=== PATIENT | male | born 1945 | race African-American/Black ===

== ENCOUNTER 2016-07-06 14:22 | Inpatient (IN) ==
[2016-07-06] MEDS ORDERED: SODIUM CHLORIDE 0.9% 1,000 ML IV STA ×2 (14:56→14:58)
--- NOTE | 2016-07-06 15:02 | Emergency Department Note ---
Arrival - Arrival Chief Complaint: Non-Specific Stated Complaint: non specific ED Nursing Triage Note: Pt c/o high blood sugar (meter reads high) x 2 days family reports pt has been taking his brother's "pills" after he ran out of his insulin, falling asleep alot, feet has been itching, and SOB/CP with exertion x 2 wks. Blood sugar in triage 324. Mode of Arrival: Wheelchair Limitations: No Limitations Source: Patient, RN Notes Reviewed Time Seen by Provider: 07/06/16 14:48 - History of Present Illness HPI Narrative: Patient is a 71-year-old black male with a long history of diabetes mellitus who has been out of his insulin for a year. The patient has been experiencing polyuria, polydipsia, and weight loss during this time. He occasionally takes his brothers medication which is metformin. Patient denies any nausea or vomiting. He does have occasional anterior chest discomfort which he describes as a tightness. This is not necessarily associated with exertion. The patient has no history of nausea or vomiting. He states that he gets up at least 30 times at night to urinate. He denies any diarrhea Onset (ago): year(s) (1) Consistency: constant Severity: severe Allergies/Adverse Reactions: Allergies Allergy/AdvReac Type Severity Reaction Status Date / Time No Known Allergies Allergy Verified 07/06/16 14:33 Home Medications: Home Medications Medication Instructions Recorded Confirmed Type No Known Home Medications [No 07/06/16 07/06/16 History Known Home Medications] Review of System - Review of System 12 point system: reviewed and no additional remarkable complaints except as stated - Review of System Constitutional: Absent: chills, fever Respiratory: Absent: cough Cardiovascular: Present: chest pain Gastrointestinal: Absent: nausea, vomiting Medical,Surgical,& Family Hx - Medical History Endocrine: History of: Diabetes Mellitus (IDDM) - Social History Smoking Status: Never smoker Marital Status: Lives With:: Spouse Functional capacity: independent ambulation Exam Vital Signs: Vital Signs Temperature 98.2 F 07/06/16 14:26 Pulse Rate 83 07/06/16 15:54 Respiratory Rate 18 07/06/16 15:54 Blood Pressure 146/70 07/06/16 15:54 O2 Sat by Pulse Oximetry 97 07/06/16 14:26 GENERAL: This is a well-nourished well-developed black male in no apparent distress. VITAL SIGNS: Reviewed HEENT: Head is atraumatic and normocephalic. Pupils are equal round react to light. Extraocular movements are intact. Oropharynx is benign with dry mucous membranes. NECK: Neck is soft and supple without tenderness. There are no masses. There is no lymphadenopathy. LUNGS: Lungs are clear to auscultation. Chest rises symmetrically. There is no chest wall tenderness. CV: Heart is rapid rate without murmurs rubs or gallops. ABDOMEN: Abdomen is soft, nontender to palpation. There are no abdominal abnormal masses palpated. There is no organomegaly. Bowel sounds are present and active. SKIN: Skin is warm and dry. No rash. Poor turgor EXTREMITIES: Patient has full range of motion without tenderness. There is no pedal edema. NEUROLOGIC: Awake alert and oriented 4. Cranial nerves II through XII are grossly intact. Motor is 5 over 5 in all extremities bilaterally. Course - Consultations Consultation #1: Discussed with hospitalist. Patient will be admitted to their service. Time: 16:27 Results - Labs CBC & BMP: 07/06/16 15:14 07/06/16 15:14 Lab Results: I have reviewed the patients labs Labs: Laboratory Tests 07/06/16 15:14 Prealbumin 20.5 - EKG EKG results: interpreted by ERMD - Impressions EKG: Normal sinus rhythm with a rate of 80, occasional supraventricular premature complexes, early repolarization, left axis deviation. - Diagnostic Findings Procedure: Chest x-ray: image reviewed by me (No infiltrates, no pleural effusions, mild cardiomegaly.) Disposition Clinical Impression: Diabetes mellitus type 1, uncontrolled, Anemia, Chest pain, Renal failure, Severe dehydration Case discussed with: patient, patient's family Disposition: Still a Patient Condition: Guarded Time of Disposition: 16:27
--- NOTE | 2016-07-06 15:19 | EKG Report ---
Stationary ECG Study [facility] ER Test Date: 07/06/2016 2:52:38 PM Pat Name: JEAN MARTINEZ Department: Room: Gender: M Medical Tech: JEAN Tsai : 1945 Requested by: Bk Eckert Order Number: [id number] Reading MD: RASHEL SALINAS Intervals [place] Rate: 80 P: 82 TX: 181 QRS: -22 QRSD: 89 T: 84 QT: 355 QTc: 391 Interpretive Statements SINUS RHYTHM WITH OCCASIONAL SUPRAVENTRICULAR PREMATURE COMPLEXES LEFT AXIS DEVIATION ST ELEVATION, PROBABLY EARLY REPOLARIZATION Electronically Signed On 07-06-16 19:09:30 CDT by RASHEL SALINAS [email or web address]
[2016-07-06 15:35] LABS: Basophils % 0.3 % (0.0-0.8); Eosinophils # 0.1 10*3/uL (0.0-0.87); Eosinophils % 1.3 % (0.00-10.9); Hematocrit 30.1 VOL% (42.0-52.0); Hemoglobin 10.4 GM/DL (14.0-18.0); Lymphocytes # 1.3 10*3/uL (1.4-4.0); Lymphocytes % 33.1 % (21.2-54.2); Mean Corpuscular HGB Conc 34.6 GM/DL (32-36); Mean Corpuscular Hemoglobin 31 PG (27-34); Mean Corpuscular Volume 88.3 FL (87-102); Mean Platelet Volume 12.2 FL (9.6-12.0); Monocytes # 0.3 10*3/uL (0.11-0.8); Monocytes % 8.1 % (1.7-12.7); Neutrophils # 2.3 10*3/uL (1.4-7.4); Neutrophils % 57.2 % (38.7-73.9); Platelet Count 132 T/CUMM (130-400); Red Blood Count 3.41 MC/CUMM (3.8-5.5); Red Cell Distribution Width 12.8 % (9.3-17.3)
[2016-07-06 15:59] LABS: Albumin 3.2 G/DL (3.4-5.0); Bilirubin,Total 0.7 MG/DL (0.2-1.0); Calcium 9.2 MG/DL (8.5-10.1); Osmolality,Calculated 309.5 MOS/KG (273-304); Potassium 4.8 MMOL/L (3.5-5.1)
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
[2016-07-06 16:11] LABS: ABG Base Excess 1.4 MMOL/L (-2.5-2.5); ABG Oxygen Saturation 96.3 % (95-100); ABG PCO2 47.2 MM HG (35-48); ABG PH 7.376 (7.35-7.45); ABG PO2 90.9 MM HG (80-95); ABG TCO2 28.5 MMOL/L (23-27)
[2016-07-06 16:21] LABS: Ferritin 264.4 ng/ml (26-388)
[2016-07-06] MEDS ORDERED: INSULIN LISPRO 100 UNIT/ML SUBCUT STA (16:27)
[2016-07-06 16:29] LABS: Folate 22.6 NG/ML (5.4-24.0)
[2016-07-06] MEDS ORDERED: INSULIN LISPRO 100 UNIT/ML SUBCUT ONE (17:05)
--- NOTE | 2016-07-06 17:18 | Hospitalist Progress Note ---
Assessment and Plan (1) Diabetes mellitus type 1, uncontrolled Status: Acute Assessment and plan: We will start accuchecks with sliding scale coverage, obtain HGA1C, and refer to diabetes education. Current Visit: Yes (2) Severe dehydration Status: Acute Assessment and plan: We will rehydrate and replace volume. Current Visit: Yes Hospitalist: Subjective Interval history: This Exam - Constitutional Vitals: Period Temp Pulse Resp BP Sys/Esposito Pulse Ox Last 24 Hr 98.2 F 83-83 18-18 146-146/70-70 97 General appearance: no acute distress, under weight - Head Head exam: Present: normal inspection, normocephalic - Eye Eye exam: Present: EOMI Pupils: Present: CIRILO, normal accommodation - ENT ENT exam: Present: normal exam - Neck Neck exam: Present: normal inspection. Absent: lymphadenopathy, meningismus, tenderness, thyromegaly - Respiratory Respiratory exam: Present: clear to auscultation bilaterally. Absent: accessory muscle use, rales, rhonchi, stridor, wheezes - Cardiovascular Cardiovascular exam: Present: regular rate and rhythm. Absent: carotid bruit, diastolic murmur, gallop, JVD, rubs, systolic murmur - GI/Abdominal GI/Abdominal exam: Present: normal bowel sounds, soft. Absent: distended, firm , mass, tenderness - Extremities Exam Extremities exam: Present: normal inspection, full ROM. Absent: edema - Back Exam Back exam: Present: normal inspection - Neurological Exam Neurological exam: Present: alert, oriented X3, CN II-XII intact - Psychiatric Psychiatric exam: Present: normal affect, normal mood - Skin Skin exam: Present: normal color, warm, dry Results - Labs CBC & BMP: 07/06/16 15:14 07/06/16 15:14 Lab Results: I have reviewed the past 24 hour labs Quality Measures - VTE Deep Vein Thrombosis/Pulmonary Embolism Present on Admission: No
--- NOTE | 2016-07-06 17:26 | Hospitalist History & Physical ---
<Skye Caicedo - Last Filed: 07/06/16 17:31> Assessment and Plan (1) Diabetes mellitus type 1, uncontrolled Status: Acute Assessment and plan: We will start accuchecks with sliding scale coverage. We will obtain HGA1C and repeat labs in AM. Current Visit: Yes (2) Severe dehydration Status: Acute Assessment and plan: We will rehydrate and replace volume. Current Visit: Yes History of Present Illness Chief complaint: "high blood sugar" History of present illness: This is a 71 year-old male that presented to the ED today with his with a chief complaint of 'high blood sugars". The patient has a been previously diagnosed with diabetes; however he does not take any medications. He reports that he was prescribed Lantus but, he never took it because of the costs. He reports that he was then prescribed Novolin, but he refused to take it. He states "everyone that I knew that took novolin has their legs cut off". He reports that he has a brother of whom is also diabetic. His brother takes Metformin. He reports that convinced his brother to give him some of his Metformin. He states that "I take it when I feel like my blood sugar is up". His is at bedside. She reports that he doesn't have a current PCP and hasn' t seen a doctor in "several years". In recent months, he reports weight loss; states "I know that I have lost 30 to 40 pounds or more". In addition, he reports frequent urination at night; states "I get up and pee 30-40 times a night". At the time of ED presentation, his blood glucose levels were noted above 400. He will be admitted to the hospitalist service for hyperglycemia and and started taking when he feel Home Medications Medication Instructions Recorded Confirmed Type No Known Home Medications [No 07/06/16 07/06/16 History Known Home Medications] Allergies Allergy/AdvReac Type Severity Reaction Status Date / Time No Known Allergies Allergy Verified 07/06/16 14:33 Medical,Surgical,& Family Hx - Medical History Endocrine: History of: Diabetes Mellitus (IDDM) - Social History Smoking Status: Never smoker - Constitutional Constitutional: Present: increased appetite, weight gain. Absent: excessive sweating, malaise, night sweats, stops breathing during sleep, weight loss - EENT Eyes: Present: blurry vision. Absent: diplopia, loss of vision Ears: Absent: as per HPI Nose, mouth and throat: Absent: as per HPI Exam - Constitutional Vitals: Period Temp Pulse Resp BP Sys/Esposito Pulse Ox Last 24 Hr 98.2 F 83-83 18-18 146-146/70-70 97 General appearance: normal weight, no acute distress - Head Head exam: Present: normal inspection, normocephalic - Eye Eye exam: Present: EOMI Pupils: Present: CIRILO - ENT ENT exam: Present: normal exam - Neck Neck exam: Present: normal inspection. Absent: lymphadenopathy, meningismus, tenderness, thyromegaly - Respiratory Respiratory exam: Present: clear to auscultation bilaterally. Absent: rales, rhonchi, stridor - Cardiovascular Cardiovascular exam: Present: regular rate and rhythm, tachycardia. Absent: carotid bruit, diastolic murmur, gallop, JVD, rubs, systolic murmur - GI/Abdominal GI/Abdominal exam: Present: normal bowel sounds, soft. Absent: guarding, mass - Extremities Exam Extremities exam: Present: normal inspection, full ROM - Back Exam Back exam: Present: normal inspection - Neurological Exam Neurological exam: Present: alert, oriented X3, CN II-XII intact - Psychiatric Psychiatric exam: Present: normal affect, normal mood - Skin Skin exam: Present: normal color, warm, dry Results - Labs CBC & BMP: 07/06/16 15:14 07/06/16 15:14 Lab Results: I have reviewed the past 24 hour labs Quality Measures - VTE Deep Vein Thrombosis/Pulmonary Embolism Present on Admission: No <Moy Renee - Last Filed: 07/06/16 18:20> History of Present Illness History of present illness: Mr. Headley is a 71 year old male Results - Labs CBC & BMP: 07/06/16 15:14 07/06/16 15:14
[2016-07-06] MEDS ORDERED: DOCUSATE SODIUM 100 MG CAPSULE PO PRN (18:05)
[2016-07-06] MEDS ORDERED: ACETAMINOPHEN 325 MG TABLET PO PRN (18:05)
[2016-07-06] MEDS ORDERED: DEXTROSE 50% 25 GM/50 ML VIAL IV PRN ×2 (18:05)
[2016-07-06] MEDS ORDERED: GLUCAGON 1 MG VIAL IM PRN ×2 (18:05)
[2016-07-06] MEDS ORDERED: hydrALAZINE 20 MG/1 ML VIAL IV PRN (18:05)
[2016-07-06] MEDS ORDERED: ONDANSETRON 4 MG/2 ML VIAL IV PRN (18:05)
[2016-07-06] MEDS: ASPIRIN 325 MG TABLET PO SCH (18:50)
[2016-07-06] MEDS: NITROGLYCERIN 2% OINT 1 INCH/GM PACK TOP SCH (18:50)
[2016-07-06] MEDS: SODIUM CHLORIDE 0.9% 1,000 ML IV SCH (18:51)
[2016-07-06] MEDS: ENOXAPARIN 40 MG/0.4 ML SYRINGE SUBCUT SCH (22:03)
[2016-07-06] MEDS: INSULIN GLARGINE 100 UNIT/ML SUBCUT SCH (22:56)
[2016-07-07] MEDS: NITROGLYCERIN 2% OINT 1 INCH/GM PACK TOP SCH ×4 (01:11→18:44)
[2016-07-07] MEDS: SODIUM CHLORIDE 0.9% 1,000 ML IV SCH ×4 (03:42→18:44)
[2016-07-07 06:39] LABS: Basophils % 0.3 % (0.0-0.8); Eosinophils # 0.1 10*3/uL (0.0-0.87); Eosinophils % 1.8 % (0.00-10.9); Hematocrit 32.4 VOL% (42.0-52.0); Hemoglobin 10.6 GM/DL (14.0-18.0); Immature Granulocytes % 0.3 %; Immature Granulocytes Absolute 0.01 #; Lymphocytes # 1.7 10*3/uL (1.4-4.0); Lymphocytes % 48.7 % (21.2-54.2); Mean Corpuscular HGB Conc 32.7 GM/DL (32-36); Mean Corpuscular Hemoglobin 30 PG (27-34); Mean Corpuscular Volume 91.3 FL (87-102); Mean Platelet Volume 11.7 FL (9.6-12.0); Monocytes # 0.3 10*3/uL (0.11-0.8); Monocytes % 7.3 % (1.7-12.7); Neutrophils # 1.4 10*3/uL (1.4-7.4); Neutrophils % 41.6 % (38.7-73.9); Platelet Count 128 T/CUMM (130-400); Red Blood Count 3.55 MC/CUMM (3.8-5.5); Red Cell Distribution Width 12.7 % (9.3-17.3); White Blood Count 3.4 T/CUMM (4-12)
[2016-07-07 07:19] LABS: Albumin 2.6 G/DL (3.4-5.0); Bilirubin,Total 0.9 MG/DL (0.2-1.0); Calcium 8.5 MG/DL (8.5-10.1); Osmolality,Calculated 305.1 MOS/KG (273-304); Potassium 4.4 MMOL/L (3.5-5.1); Risk Ratio 3.56; Thyroid Stimulating Hormone 1.29 uIU/ml (0.358-3.74); Total Protein 5.4 G/DL (6.4-8.3); VLDL CHOLESTEROL 16.6 MG/DL
[2016-07-07] MEDS: PANTOPRAZOLE 40 MG TABLET PO SCH (08:08)
[2016-07-07] MEDS: ASPIRIN 325 MG TABLET PO SCH (08:08)
--- NOTE | 2016-07-07 13:01 | Hospitalist Progress Note ---
Assessment and Plan - Time spent with patient Time spent with patient: Greater than 30 minutes (1) Diabetes mellitus type 1, uncontrolled Status: Acute Assessment and plan: We will add lispro 5 units to meals twice daily. Will ask social work to evaluate cost of insulin at discharge tomorrow. Current Visit: Yes Hospitalist: Subjective Interval history: Admitted overnight with uncontrolled hyperglycemia. Currently no complaints. Exam - Constitutional Vitals: Period Temp Pulse Resp BP Sys/Esposito Pulse Ox Last 24 Hr 97.7 F-98.7 F 71-80 16-18 137-164/68-98 96-100 General appearance: no acute distress - Head Head exam: Present: normocephalic, atraumatic - Eye Eye exam: Present: EOMI Pupils: Present: CIRILO - ENT ENT exam: Present: normal exam - Neck Neck exam: Present: normal inspection - Respiratory Respiratory exam: Present: clear to auscultation bilaterally. Absent: rhonchi, wheezes - Cardiovascular Cardiovascular exam: Present: regular rate and rhythm. Absent: gallop, rubs, systolic murmur - GI/Abdominal GI/Abdominal exam: Present: normal bowel sounds, soft. Absent: distended, firm , guarding, tenderness, rebound - Extremities Exam Extremities exam: Present: normal inspection. Absent: calf tenderness, edema Results - Labs CBC & BMP: 07/07/16 06:19 07/07/16 06:19 Lab Results: I have reviewed the past 24 hour labs Quality Measures - VTE Deep Vein Thrombosis/Pulmonary Embolism Present on Admission: No
[2016-07-07] MEDS: INSULIN LISPRO 100 UNIT/ML SUBCUT SCH (18:43)
[2016-07-07] MEDS: ENOXAPARIN 40 MG/0.4 ML SYRINGE SUBCUT SCH (21:52)
[2016-07-07] MEDS: INSULIN GLARGINE 100 UNIT/ML SUBCUT SCH (21:52)
[2016-07-08] MEDS: NITROGLYCERIN 2% OINT 1 INCH/GM PACK TOP SCH ×3 (02:01→11:13)
[2016-07-08] MEDS: SODIUM CHLORIDE 0.9% 1,000 ML IV SCH ×2 (02:23→12:50)
[2016-07-08 06:40] LABS: Eosinophils # 0.1 10*3/uL (0.0-0.87); Eosinophils % 1.9 % (0.00-10.9); Hematocrit 30.8 VOL% (42.0-52.0); Lymphocytes # 1.6 10*3/uL (1.4-4.0); Lymphocytes % 51.4 % (21.2-54.2); Mean Corpuscular HGB Conc 32.5 GM/DL (32-36); Mean Corpuscular Hemoglobin 30 PG (27-34); Mean Corpuscular Volume 91.4 FL (87-102); Mean Platelet Volume 11.4 FL (9.6-12.0); Monocytes # 0.2 10*3/uL (0.11-0.8); Monocytes % 6.8 % (1.7-12.7); Neutrophils # 1.2 10*3/uL (1.4-7.4); Neutrophils % 39.9 % (38.7-73.9); Platelet Count 124 T/CUMM (130-400); Red Blood Count 3.37 MC/CUMM (3.8-5.5); Red Cell Distribution Width 12.8 % (9.3-17.3); White Blood Count 3.1 T/CUMM (4-12)
[2016-07-08 07:06] LABS: Calcium 8.2 MG/DL (8.5-10.1); Osmolality,Calculated 297.4 MOS/KG (273-304)
[2016-07-08 07:09] LABS: Hypochromasia Slight; Platelet Estimate Adequate
[2016-07-08] MEDS: INSULIN LISPRO 100 UNIT/ML SUBCUT SCH ×2 (07:41→16:06)
[2016-07-08] MEDS: PANTOPRAZOLE 40 MG TABLET PO SCH (08:37)
[2016-07-08] MEDS: ASPIRIN 325 MG TABLET PO SCH (08:37)
--- NOTE | 2016-07-08 12:18 | Discharge Summary ---
Hospital Course - Hospital Course Hospital Course: Mr. Branch presented with dehydration elevated glucose levels. Hemoglobin A1c was noted to be 15.5. Patient had not been taking any home insulin and had in fact been taking his brothers metformin prior to admission. He was initiated on Lantus and Lispro. Social work confirmed that it was affordable to the patient. He was seen by yoke presser. By discharge he had met maximum benefit of hospitalization. - Time spent with patient Time with patient DS: Greater than 30 minutes Diagnosis - Discharge Diagnosis (1) Diabetes mellitus type 1, uncontrolled Status: Acute Specialty Discharge - Follow Up or Referrals Discharge Plan - Discharge Data Disposition: Disch To Home/Self Care Condition at Discharge: Stable Discharge Diet: advance to your usual diet Activity: resume usual activities as tolerated - Discharge Medications New Aspirin EC Tab 81 mg PO DAILY #30 tablet Insulin Glargine [Lantus] 10 unit SUBCUT BEDTIME #1 unit Insulin Lispro [HumaLOG] 5 unit SUBCUT TID W/MEALS #1 unit - Follow Up or Referral - Forms/Instructions Instructions: Chest Pain (DC), Chronic Kidney Disease (DC), Diabetes Mellitus Type 2 in Adults (DC), Anemia (DC) Exam - Constitutional Vitals: Period Temp Pulse Resp BP Sys/Esposito Pulse Ox Last 24 Hr 97.7 F-98.4 F 67-76 16-18 140-157/78-95 96-100 General appearance: normal weight, no acute distress - Head Head exam: Present: normal inspection, normocephalic, atraumatic - Eye Eye exam: Present: EOMI Pupils: Present: CIRILO - ENT ENT exam: Present: normal exam - Neck Neck exam: Present: normal inspection - Respiratory Respiratory exam: Present: clear to auscultation bilaterally - Cardiovascular Cardiovascular exam: Present: regular rate and rhythm - GI/Abdominal GI/Abdominal exam: Present: normal bowel sounds - Extremities Exam Extremities exam: Present: normal inspection Discharge Results Labs on day of discharge: Labs from last 24 hours 07/08/16 07/08/16 07/08/16 11:32 07:36 06:23 WBC RBC Hgb Hct MCV MCH MCHC RDW Plt Count MPV Neut % (Auto) Lymph % (Auto) [place] % (Auto) Eos % (Auto) Baso % (Auto) Neut # (Auto) Lymph # (Auto) [place] # (Auto) Eos # (Auto) Baso # (Auto) Immature Gran % Nucleated RBC % Immature Gran # Nucleated RBCs # Platelet Estimate Hypochromasia Sodium 147 H Potassium 4.0 Chloride 114 H Carbon Dioxide 27 Anion Gap 10.0 BUN 23 H Creatinine 1.50 H GFR Calculation 61 BUN/Creatinine Ratio 15.00 Glucose 135 H POC Glucose 85 105 Calculated Osmolality 297.4 Calcium 8.2 L 07/08/16 07/07/16 07/07/16 06:23 20:09 16:40 WBC 3.1 L RBC 3.37 L Hgb 10.0 L Hct 30.8 L MCV 91.4 MCH 30 MCHC 32.5 RDW 12.8 Plt Count 124 L MPV 11.4 Neut % (Auto) 39.9 Lymph % (Auto) 51.4 [place] % (Auto) 6.8 Eos % (Auto) 1.9 Baso % (Auto) 0.0 Neut # (Auto) 1.2 L Lymph # (Auto) 1.6 [place] # (Auto) 0.2 Eos # (Auto) 0.1 Baso # (Auto) 0.0 Immature Gran % 0.0 Nucleated RBC % 0.0 Immature Gran # 0.00 Nucleated RBCs # 0.00 Platelet Estimate Adequate Hypochromasia Slight Sodium Potassium Chloride Carbon Dioxide Anion Gap BUN Creatinine GFR Calculation BUN/Creatinine Ratio Glucose POC Glucose 346 H 378 H Calculated Osmolality Calcium 07/07/16 12:12 WBC RBC Hgb Hct MCV MCH MCHC RDW Plt Count MPV Neut % (Auto) Lymph % (Auto) [place] % (Auto) Eos % (Auto) Baso % (Auto) Neut # (Auto) Lymph # (Auto) [place] # (Auto) Eos # (Auto) Baso # (Auto) Immature Gran % Nucleated RBC % Immature Gran # Nucleated RBCs # Platelet Estimate Hypochromasia Sodium Potassium Chloride Carbon Dioxide Anion Gap BUN Creatinine GFR Calculation BUN/Creatinine Ratio Glucose POC Glucose 300 H Calculated Osmolality Calcium DS: Provider Date of admission: 07/06/16 17:19 Primary care physician: . No PCP Attending physician on admission: Magnolia Maloney MD Consults: 07/06/16 18:05 Consult to Diabetes Center, Educator [CONS] Routine Reason for Organ Pipe Maker Metal: Diabetes Education 07/06/16 18:09 Consult to Pharmacy [CONS] Routine Reason for Pharmacy Consult: Adjust Meds Renal Funct 07/06/16 18:46 Consult to Dietitian [CONS] Routine Reason for Dietitian: Diet Instruction 07/06/16 18:49 Consult to Diabetes Center, Educator [CONS] Routine Reason for Organ Pipe Maker Metal: Diabetes Education 07/07/16 13:01 Consult to Case Mgmt/Social Srvs [CONS] Routine Reason for Case Mgmt/Social Srvs: Discharge Planning 07/08/16 08:00 Consult to Case Mgmt/Social Srvs [CONS] Routine Reason for Case Mgmt/Social Srvs: Other Consult Comment: evaluate cost of Insulin for pt (not sure of dose yet) 07/08/16 11:40 Consult to Diabetes Center, Educator [CONS] Routine Reason for Organ Pipe Maker Metal: Diabetes Education Initial Insulin Education Discharging clinician: Magnolia Maloney MD Expected date of discharge: 07/08/16
[2016-07-08 12:46] VITALS: BP 147/74
--- NOTE | 2016-07-08 13:14 | Physician Query Form ---
CLICK EDIT DOCUMENT TO SELECT QUERY ANSWER --> OK --> SIGN Ngoc Berman RN Clinical Folder Machine Operator W) [phone] (f) [phone] [email or web address]: Make your selection(s) from the choices in EACH section by typing an "x" and enter comments in the comment section. Please use your independent medical judgment in providing your response. This request does not imply that any particular answer is desired or expected. CLINICAL INDICATORS: (Providers should not edit this section) Based on documentation of "renal failure", creatinine on admission of 2.10 with a GFR of 41 and decreased to 1.50. Pt. treated with IV fluids. Please clarify the acuity of the renal failure. Clarify which of the following most accurately represents the patient's renal status: ( ) Acute kidney injury (non-traumatic) ( ) Acute renal failure (x ) Acute renal failure with underlying Chronic Kidney Disease (CKD) - please provide stage below ( ) CKD - please provide stage below ( ) Other, please specify: ( ) Clinically unable to determine Chronic Kidney Disease Stages Source: National Kid[employer] Foundation ( ) Stage I (eGFR > or = 90) ( ) Stage II (eGFR 60 - 89) (x ) Stage III (eGFR 30 - 59) ( ) Stage IV (eGFR 15 - 29) ( ) Stage V (eGFR < 15 or dialysis) COMMENTS: Use of terms such as suspected, likely, or probable (associated with a specific diagnosis that is being evaluated, monitored, or treated as if it exists) are acceptable and can be restated in the discharge summary if not ruled out. MTDD
== END 2016-07-08 16:53 | disposition home or self-care (01) | DRG 638 ==
LOC: N.ED 14:22 → N.EDINP 17:19 → N.5E 17:40
PROVIDERS: ADMIT Internal Medicine; ATTEND Internal Medicine

== ENCOUNTER 2017-12-06 11:02 | Observation (INO) ==
[2017-12-06] MEDS ORDERED: LACTATED RINGERS 1,000 ML IV ONE (13:34)
[2017-12-06] MEDS ORDERED: CLOTRIMAZOLE 1% CREAM 15 GM TUBE TOP STA (13:35)
[2017-12-06 14:07] LABS: Eosinophils # 0.1 10*3/uL (0.0-0.87); Eosinophils % 1.9 % (0.00-10.9); Hematocrit 27.7 VOL% (42.0-52.0); Hemoglobin 9.3 GM/DL (14.0-18.0); Immature Granulocytes % 0.3 %; Immature Granulocytes Absolute 0.01 #; Lymphocytes # 1.2 10*3/uL (1.4-4.0); Lymphocytes % 37.7 % (21.2-54.2); Mean Corpuscular HGB Conc 33.6 GM/DL (32-36); Mean Corpuscular Hemoglobin 31 PG (27-34); Mean Corpuscular Volume 91.1 FL (87-102); Mean Platelet Volume 11.6 FL (9.6-12.0); Monocytes # 0.3 10*3/uL (0.11-0.8); Monocytes % 8.4 % (1.7-12.7); Neutrophils # 1.7 10*3/uL (1.4-7.4); Neutrophils % 51.7 % (38.7-73.9); Platelet Count 145 T/CUMM (130-400); Red Blood Count 3.04 MC/CUMM (3.8-5.5); Red Cell Distribution Width 12.8 % (9.3-17.3); White Blood Count 3.2 T/CUMM (4-12)
[2017-12-06 14:17] LABS: INR 0.9
[2017-12-06 14:20] LABS: Apearance,Urine CLEAR (Clear); Bilirubin,Urine Negative (Negative); Blood, Urine Small mg/dL (Negative); Glucose,Urine (UA) >=500 mg/dL (Negative); Ketones,Urine Negative (Negative); Mucus,Urine Occasional /LPF (Occasional); Nitrite,Urine Negative (Negative); Protein,Urine 100 MG/DL; RBC,Urine 1 /HPF (0-4); Squamous Epithelial Cell,Urine Occasional /HPF (0-10); Urine Color Straw (Yellow); Urine Specific Gravity 1.016 (1.001-1.035); Urine Urobilinogen < 2.0 EU/DL (0.2-1.0); WBC,Urine 1 /HPF (0-6)
[2017-12-06 14:31] LABS: Albumin 2.4 G/DL (3.4-5.0); Bilirubin,Total 0.7 MG/DL (0.2-1.0); Calcium 8.3 MG/DL (8.5-10.1); Osmolality,Calculated 308.8 MOS/KG (273-304); Potassium 4.2 MMOL/L (3.5-5.1); Total Protein 6.4 G/DL (6.4-8.3)
[2017-12-06] MEDS ORDERED: INSULIN REGULAR 100 UNIT/ML IV STA (14:55)
[2017-12-06] MEDS ORDERED: PROMETHAZINE 25 MG/1 ML VIAL IM PRN (15:02)
[2017-12-06] MEDS ORDERED: DEXTROSE 50% 25 GM/50 ML VIAL IV PRN (15:02)
[2017-12-06] MEDS ORDERED: GLUCAGON 1 MG VIAL IM PRN (15:02)
[2017-12-06] MEDS ORDERED: ONDANSETRON 4 MG/2 ML VIAL IV PRN (15:02)
[2017-12-06] MEDS ORDERED: hydrALAZINE 20 MG/1 ML VIAL IV STA (15:06)
[2017-12-06] MEDS ORDERED: SODIUM CHLORIDE 0.9% 1,000 ML IV STA (15:11)
[2017-12-06] MEDS ORDERED: amLODIPine 5 MG TABLET PO STA (15:19)
[2017-12-06] MEDS ORDERED: POTASSIUM CHLORIDE RIDER 10 MEQ in PREMIX 1 EACH IV PRN (15:41)
[2017-12-06] MEDS: FLUCONAZOLE 200 MG TABLET PO SCH (16:15)
[2017-12-06] MEDS ORDERED: INSULIN REGULAR 100 UNIT/ML IV ONE (17:26)
[2017-12-06] MEDS: SODIUM CHLORIDE 0.9% 1,000 ML IV SCH (17:56)
[2017-12-06] MEDS: INSULIN REGULAR 100 UNIT/ML SUBCUT SCH ×3 (18:23→22:03)
[2017-12-06] MEDS ORDERED: INSULIN GLARGINE 100 UNIT/ML SUBCUT SCH ×2 (21:00)
[2017-12-06] MEDS: ENOXAPARIN 30 MG/0.3 ML SYRINGE SUBCUT SCH (22:04)
[2017-12-07] MEDS ORDERED: INSULIN REGULAR 100 UNIT/ML IV ONE (01:00)
[2017-12-07] MEDS ORDERED: INSULIN GLARGINE 100 UNIT/ML SUBCUT ONE (01:00)
[2017-12-07] MEDS ORDERED: INSULIN REGULAR 100 UNIT/ML SUBCUT ONE (01:09)
[2017-12-07] MEDS: INSULIN REGULAR 100 UNIT/ML SUBCUT SCH ×10 (02:05→21:23)
[2017-12-07 04:19] LABS: Basophils % 0.2 % (0.0-0.8); Eosinophils % 0.9 % (0.00-10.9); Hemoglobin 9.5 GM/DL (14.0-18.0); Immature Granulocytes % 0.2 %; Immature Granulocytes Absolute 0.01 #; Lymphocytes # 1.2 10*3/uL (1.4-4.0); Lymphocytes % 26.6 % (21.2-54.2); Mean Corpuscular HGB Conc 33.9 GM/DL (32-36); Mean Corpuscular Hemoglobin 31 PG (27-34); Mean Corpuscular Volume 90.3 FL (87-102); Mean Platelet Volume 12.1 FL (9.6-12.0); Monocytes # 0.3 10*3/uL (0.11-0.8); Monocytes % 6.4 % (1.7-12.7); Neutrophils # 3.1 10*3/uL (1.4-7.4); Neutrophils % 65.7 % (38.7-73.9); Platelet Count 145 T/CUMM (130-400); Red Cell Distribution Width 12.8 % (9.3-17.3); White Blood Count 4.7 T/CUMM (4-12)
[2017-12-07 04:43] LABS: Calcium 8.2 MG/DL (8.5-10.1); Osmolality,Calculated 304.8 MOS/KG (273-304); Potassium 3.6 MMOL/L (3.5-5.1)
[2017-12-07 05:31] LABS: Risk Ratio 3.6; Thyroid Stimulating Hormone 1.86 uIU/ml (0.358-3.74); VLDL CHOLESTEROL 25.4 MG/DL
[2017-12-07] MEDS: SODIUM CHLORIDE 0.9% 1,000 ML IV SCH ×3 (06:01→22:37)
[2017-12-07] MEDS: PANTOPRAZOLE 40 MG TABLET PO SCH (08:52)
[2017-12-07] MEDS: ASPIRIN EC 81 MG TABLET PO SCH (08:52)
[2017-12-07] MEDS: FLUCONAZOLE 200 MG TABLET PO SCH (08:52)
[2017-12-07] MEDS: POTASSIUM CHLORIDE 20 MEQ TABLET PO PRN ×2 (08:53→10:32)
[2017-12-07] MEDS ORDERED: INSULIN GLARGINE 100 UNIT/ML SUBCUT SCH (09:03)
[2017-12-07] MEDS: amLODIPine 5 MG TABLET PO SCH (10:32)
[2017-12-07] MEDS ORDERED: ROSUVASTATIN 10 MG TABLET PO SCH (21:00)
[2017-12-07] MEDS: ENOXAPARIN 30 MG/0.3 ML SYRINGE SUBCUT SCH (21:07)
[2017-12-08] MEDS: INSULIN REGULAR 100 UNIT/ML SUBCUT SCH ×7 (00:08→11:37)
[2017-12-08 05:42] LABS: Calcium 8.5 MG/DL (8.5-10.1); Osmolality,Calculated 296.3 MOS/KG (273-304); Potassium 3.6 MMOL/L (3.5-5.1)
[2017-12-08] MEDS: SODIUM CHLORIDE 0.9% 1,000 ML IV SCH (06:03)
[2017-12-08] MEDS: amLODIPine 5 MG TABLET PO SCH (08:29)
[2017-12-08] MEDS: FLUCONAZOLE 200 MG TABLET PO SCH (08:29)
[2017-12-08] MEDS: ASPIRIN EC 81 MG TABLET PO SCH (08:29)
[2017-12-08] MEDS: PANTOPRAZOLE 40 MG TABLET PO SCH (08:29)
[2017-12-08 08:38] VITALS: BP 148/67
== END 2017-12-08 14:47 | disposition home or self-care (01) ==
LOC: N.ED 11:02 → N.EDINP 11:02 → SUATTDRO 15:02 → N.4E 16:36
PROVIDERS: ADMIT Hospitalist; ATTEND Internal Medicine

== ENCOUNTER 2018-05-05 15:37 | Observation (INO) ==
[2018-05-05] MEDS ORDERED: INSULIN REGULAR 100 UNIT/ML IV STA (18:42)
[2018-05-05] MEDS ORDERED: METOCLOPRAMIDE 10 MG/2 ML VIAL IV STA (18:42)
[2018-05-05] MEDS ORDERED: ONDANSETRON 4 MG/2 ML VIAL IV STA (18:42)
[2018-05-05] MEDS ORDERED: SODIUM CHLORIDE 0.9% 1,000 ML IV STA (18:42)
[2018-05-05 18:53] LABS: Basophils % 0.2 % (0.0-0.8); Eosinophils # 0.1 10*3/uL (0.0-0.87); Hemoglobin 8.8 GM/DL (14.0-18.0); Immature Granulocytes % 0.2 %; Immature Granulocytes Absolute 0.01 #; Lymphocytes # 1.4 10*3/uL (1.4-4.0); Lymphocytes % 31.8 % (21.2-54.2); Mean Corpuscular HGB Conc 32.6 GM/DL (32-36); Mean Corpuscular Hemoglobin 30 PG (27-34); Mean Corpuscular Volume 90.9 FL (87-102); Mean Platelet Volume 12.2 FL (9.6-12.0); Monocytes # 0.4 10*3/uL (0.11-0.8); Monocytes % 8.5 % (1.7-12.7); Neutrophils # 2.6 10*3/uL (1.4-7.4); Neutrophils % 57.3 % (38.7-73.9); Platelet Count 143 T/CUMM (130-400); Red Blood Count 2.97 MC/CUMM (3.8-5.5); Red Cell Distribution Width 13.6 % (9.3-17.3); White Blood Count 4.5 T/CUMM (4-12)
[2018-05-05 19:10] LABS: Alanine Aminotransferase 34 U/L (16-61); Alkaline Phosphatase 153 U/L (45-117); Aspartate Amino Transferase 27 U/L (0-37); Bilirubin,Total < 0.39 MG/DL (0.2-1.0); Blood Urea Nitrogen 41 MG/DL (7-18); Calcium 8.2 MG/DL (8.5-10.1); Osmolality,Calculated 301.2 MOS/KG (273-304); Potassium 3.6 MMOL/L (3.5-5.1); Sodium 134 MMOL/L (136-145); Total Protein 5.8 G/DL (6.4-8.3)
[2018-05-05 19:16] LABS: Glucose 539 MG/DL (74-106)
[2018-05-05 19:56] LABS: Apearance,Urine Slightly Hazy (Clear); Bacteria,Urine Occasional /HPF (Few); Bilirubin,Urine Negative (Negative); Blood, Urine Small mg/dL (Negative); Glucose,Urine (UA) >=500 mg/dL (Negative); Hyaline Casts,Urine 1 /LPF (0-3); Ketones,Urine Negative (Negative); Mucus,Urine Occasional /LPF (Occasional); Nitrite,Urine Negative (Negative); Protein,Urine >=500 MG/DL; RBC,Urine 1 /HPF (0-4); Squamous Epithelial Cell,Urine Occasional /HPF (0-10); Urine Color Straw (Yellow); Urine Specific Gravity 1.018 (1.001-1.035); Urine Urobilinogen < 2.0 EU/DL (0.2-1.0); WBC,Urine 1 /HPF (0-6)
[2018-05-05] MEDS ORDERED: ACETAMINOPHEN 325 MG TABLET PO PRN (23:00)
[2018-05-05] MEDS ORDERED: GLUCAGON 1 MG VIAL IM PRN (23:00)
[2018-05-05] MEDS ORDERED: DEXTROSE 50% 25 GM/50 ML VIAL IV PRN (23:00)
[2018-05-05] MEDS ORDERED: ONDANSETRON 4 MG/2 ML VIAL IV PRN (23:00)
[2018-05-05] MEDS ORDERED: NIFEdipine 10 MG CAPSULE PO PRN (23:00)
[2018-05-05] MEDS ORDERED: SODIUM CHLORIDE 0.9% 1,000 ML IV SCH (23:00)
[2018-05-05 23:08] LABS: Amylase 75 U/L (25-115)
[2018-05-05] MEDS: INSULIN NPH 100 UNIT/ML SUBCUT SCH (23:55)
[2018-05-05] MEDS: INSULIN REGULAR 100 UNIT/ML SUBCUT SCH (23:55)
[2018-05-06] MEDS: CARVEDILOL 12.5 MG TABLET PO SCH ×3 (00:23→22:38)
[2018-05-06 05:12] LABS: Basophils % 0.2 % (0.0-0.8); Eosinophils # 0.1 10*3/uL (0.0-0.87); Eosinophils % 2.3 % (0.00-10.9); Hematocrit 23.1 VOL% (42.0-52.0); Hemoglobin 7.6 GM/DL (14.0-18.0); Immature Granulocytes % 0.2 %; Immature Granulocytes Absolute 0.01 #; Lymphocytes # 1.7 10*3/uL (1.4-4.0); Lymphocytes % 37.5 % (21.2-54.2); Mean Corpuscular HGB Conc 32.9 GM/DL (32-36); Mean Corpuscular Hemoglobin 30 PG (27-34); Mean Corpuscular Volume 89.9 FL (87-102); Mean Platelet Volume 12.1 FL (9.6-12.0); Monocytes # 0.3 10*3/uL (0.11-0.8); Monocytes % 7.2 % (1.7-12.7); Neutrophils # 2.3 10*3/uL (1.4-7.4); Neutrophils % 52.6 % (38.7-73.9); Platelet Count 134 T/CUMM (130-400); Red Blood Count 2.57 MC/CUMM (3.8-5.5); Red Cell Distribution Width 13.6 % (9.3-17.3); White Blood Count 4.4 T/CUMM (4-12)
[2018-05-06 05:36] LABS: Calcium 7.9 MG/DL (8.5-10.1); Osmolality,Calculated 297.5 MOS/KG (273-304); Potassium 3.7 MMOL/L (3.5-5.1)
[2018-05-06 05:38] LABS: Troponin I 0.098 NG/ML (0.00-0.045)
[2018-05-06] MEDS: LISINOPRIL 10 MG TABLET PO SCH (09:40)
[2018-05-06] MEDS: INSULIN REGULAR 100 UNIT/ML SUBCUT SCH ×4 (09:40→22:38)
[2018-05-06] MEDS: INSULIN NPH 100 UNIT/ML SUBCUT SCH ×2 (09:40→16:58)
[2018-05-06] MEDS: PANTOPRAZOLE 40 MG TABLET PO SCH (09:40)
[2018-05-06] MEDS: ENOXAPARIN 30 MG/0.3 ML SYRINGE SUBCUT SCH (09:40)
[2018-05-06 10:07] LABS: % Iron Saturation 33.1 % (18-50)
[2018-05-06 21:51] LABS: Protein/Creatinine Ratio,Urine 4.1 RATIO
[2018-05-07 05:37] LABS: Calcium 8.2 MG/DL (8.5-10.1); Osmolality,Calculated 299.1 MOS/KG (273-304); Potassium 3.8 MMOL/L (3.5-5.1)
[2018-05-07] MEDS: INSULIN REGULAR 100 UNIT/ML SUBCUT SCH ×4 (08:13→22:43)
[2018-05-07] MEDS: INSULIN NPH 100 UNIT/ML SUBCUT SCH ×2 (08:14→22:35)
[2018-05-07] MEDS: ENOXAPARIN 30 MG/0.3 ML SYRINGE SUBCUT SCH (09:38)
[2018-05-07] MEDS: CARVEDILOL 12.5 MG TABLET PO SCH ×2 (09:39→22:46)
[2018-05-07] MEDS: LISINOPRIL 10 MG TABLET PO SCH (09:39)
[2018-05-07] MEDS: PANTOPRAZOLE 40 MG TABLET PO SCH (09:39)
[2018-05-07] MEDS ORDERED: LATANOPROST 0.005% OPH SOLN 2.5 ML BOTTLE BOTH EYES SCH (21:00)
[2018-05-08 06:54] LABS: Calcium 8.2 MG/DL (8.5-10.1); Osmolality,Calculated 306.1 MOS/KG (273-304); Potassium 3.9 MMOL/L (3.5-5.1)
[2018-05-08] MEDS ORDERED: diphenhydrAMINE CAP 25 MG CAPSULE PO ONE (09:34)
[2018-05-08] MEDS: INSULIN NPH 100 UNIT/ML SUBCUT SCH ×2 (10:01→17:12)
[2018-05-08] MEDS: INSULIN REGULAR 100 UNIT/ML SUBCUT SCH ×3 (10:01→17:12)
[2018-05-08] MEDS: LISINOPRIL 10 MG TABLET PO SCH (10:02)
[2018-05-08] MEDS: ENOXAPARIN 30 MG/0.3 ML SYRINGE SUBCUT SCH (10:02)
[2018-05-08] MEDS: PANTOPRAZOLE 40 MG TABLET PO SCH (10:02)
[2018-05-08] MEDS: CARVEDILOL 12.5 MG TABLET PO SCH (10:02)
[2018-05-08 16:48] VITALS: BP 142/77
== END 2018-05-08 19:08 | disposition home or self-care (01) ==
LOC: N.EDINP 15:37 → N.ED 15:37 → SUATTDRO 20:15 → N.2E 22:29
PROVIDERS: ADMIT Internal Medicine; ATTEND Internal Medicine

== ENCOUNTER 2018-05-15 17:08 | Inpatient (IN) ==
[2018-05-15] MEDS ORDERED: FUROSEMIDE 100 MG/10 ML VIAL IV STA (17:55)
[2018-05-15] MEDS ORDERED: FUROSEMIDE 20 MG/2 ML VIAL ONE (18:07)
[2018-05-15] MEDS ORDERED: FUROSEMIDE 40 MG/4 ML VIAL ONE (18:07)
[2018-05-15 18:25] LABS: INR 1.4; PT Patient Result 15.1 SECS
[2018-05-15 18:45] LABS: Albumin 2.1 G/DL (3.4-5.0); Bilirubin,Total 0.4 MG/DL (0.2-1.0); Calcium 8.5 MG/DL (8.5-10.1); Potassium 4.7 MMOL/L (3.5-5.1); Total Protein 6.3 G/DL (6.4-8.3)
[2018-05-15 19:04] LABS: Basophils % 0.2 % (0.0-0.8); Eosinophils # 0.1 10*3/uL (0.0-0.87); Eosinophils % 0.8 % (0.00-10.9); Hematocrit 22.8 VOL% (42.0-52.0); Hemoglobin 7.4 GM/DL (14.0-18.0); Immature Granulocytes % 0.5 %; Immature Granulocytes Absolute 0.03 #; Lymphocytes # 1.4 10*3/uL (1.4-4.0); Lymphocytes % 22.7 % (21.2-54.2); Mean Corpuscular HGB Conc 32.5 GM/DL (32-36); Mean Corpuscular Hemoglobin 30 PG (27-34); Mean Corpuscular Volume 93.4 FL (87-102); Mean Platelet Volume 11.9 FL (9.6-12.0); Monocytes # 0.6 10*3/uL (0.11-0.8); Monocytes % 8.9 % (1.7-12.7); Neutrophils # 4.2 10*3/uL (1.4-7.4); Neutrophils % 66.9 % (38.7-73.9); Platelet Count 139 T/CUMM (130-400); Red Blood Count 2.44 MC/CUMM (3.8-5.5); Red Cell Distribution Width 14.9 % (9.3-17.3); White Blood Count 6.2 T/CUMM (4-12)
[2018-05-15] MEDS ORDERED: hydrALAZINE 20 MG/1 ML VIAL IV STA (19:05)
[2018-05-15 19:43] LABS: Apearance,Urine CLEAR (Clear); Bacteria,Urine Occasional /HPF (Few); Bilirubin,Urine Negative (Negative); Blood, Urine Small mg/dL (Negative); Glucose,Urine (UA) Negative (Negative); Ketones,Urine Negative (Negative); Mucus,Urine Occasional /LPF (Occasional); Nitrite,Urine Negative (Negative); Protein,Urine 100 MG/DL; RBC,Urine 2 /HPF (0-4); Urine Color Straw (Yellow); Urine Specific Gravity 1.008 (1.001-1.035); Urine Urobilinogen < 2.0 EU/DL (0.2-1.0); WBC,Urine 1 /HPF (0-6)
[2018-05-15] MEDS ORDERED: ONDANSETRON 4 MG/2 ML VIAL IV PRN (20:03)
[2018-05-15] MEDS ORDERED: DOCUSATE SODIUM 100 MG CAPSULE PO PRN (20:03)
[2018-05-15] MEDS ORDERED: ACETAMINOPHEN 325 MG TABLET PO PRN (20:03)
[2018-05-15] MEDS ORDERED: DEXTROSE 50% 25 GM/50 ML VIAL IV PRN (20:11)
[2018-05-15] MEDS ORDERED: GLUCAGON 1 MG VIAL IM PRN (20:11)
[2018-05-15] MEDS ORDERED: LABETALOL 20 MG/4 ML SYRINGE IV PRN (20:19)
[2018-05-15] MEDS: INSULIN REGULAR 100 UNIT/ML SUBCUT SCH (23:15)
[2018-05-15] MEDS: ENOXAPARIN 30 MG/0.3 ML SYRINGE SUBCUT SCH (23:17)
[2018-05-15] MEDS: LATANOPROST 0.005% OPH SOLN 2.5 ML BOTTLE BOTH EYES SCH (23:17)
[2018-05-15] MEDS: CARVEDILOL 25 MG TABLET PO SCH (23:17)
[2018-05-16 05:34] LABS: Basophils % 0.2 % (0.0-0.8); Eosinophils % 0.5 % (0.00-10.9); Hematocrit 21.9 VOL% (42.0-52.0); Immature Granulocytes % 0.5 %; Immature Granulocytes Absolute 0.03 #; Lymphocytes # 1.1 10*3/uL (1.4-4.0); Lymphocytes % 18.9 % (21.2-54.2); Mean Corpuscular Hemoglobin 30 PG (27-34); Mean Corpuscular Volume 93.2 FL (87-102); Mean Platelet Volume 12.2 FL (9.6-12.0); Monocytes # 0.5 10*3/uL (0.11-0.8); Monocytes % 7.7 % (1.7-12.7); Neutrophils # 4.2 10*3/uL (1.4-7.4); Neutrophils % 72.2 % (38.7-73.9); Platelet Count 137 T/CUMM (130-400); Red Blood Count 2.35 MC/CUMM (3.8-5.5); Red Cell Distribution Width 14.8 % (9.3-17.3); White Blood Count 5.8 T/CUMM (4-12)
[2018-05-16 05:39] LABS: Basophils % 0.2 % (0.0-0.8); Eosinophils % 0.7 % (0.00-10.9); Immature Granulocytes % 0.3 %; Immature Granulocytes Absolute 0.02 #; Lymphocytes # 1.1 10*3/uL (1.4-4.0); Lymphocytes % 18.8 % (21.2-54.2); Mean Corpuscular HGB Conc 31.8 GM/DL (32-36); Mean Corpuscular Hemoglobin 30 PG (27-34); Mean Corpuscular Volume 93.2 FL (87-102); Mean Platelet Volume 12.1 FL (9.6-12.0); Monocytes # 0.4 10*3/uL (0.11-0.8); Monocytes % 7.1 % (1.7-12.7); Neutrophils # 4.3 10*3/uL (1.4-7.4); Neutrophils % 72.9 % (38.7-73.9); Platelet Count 136 T/CUMM (130-400); Red Blood Count 2.36 MC/CUMM (3.8-5.5); White Blood Count 5.9 T/CUMM (4-12)
[2018-05-16 05:56] LABS: % Iron Saturation 6.1 % (18-50); Ferritin 309.9 ng/ml (26-388)
[2018-05-16 06:02] LABS: Calcium 8.3 MG/DL (8.5-10.1); Osmolality,Calculated 312.1 MOS/KG (273-304); Potassium 4.4 MMOL/L (3.5-5.1); Thyroid Stimulating Hormone 3.37 uIU/ml (0.358-3.74)
[2018-05-16 06:07] LABS: Folate 8.9 NG/ML (5.4-24.0); Vitamin B12 697 PG/ML (211-911)
[2018-05-16] MEDS ORDERED: FUROSEMIDE 40 MG/4 ML VIAL IV SCH (09:00)
[2018-05-16] MEDS: INSULIN REGULAR 100 UNIT/ML SUBCUT SCH ×4 (09:33→22:43)
[2018-05-16] MEDS: CARVEDILOL 25 MG TABLET PO SCH ×2 (09:33→17:53)
[2018-05-16] MEDS: LISINOPRIL 20 MG TABLET PO SCH (09:33)
[2018-05-16] MEDS ORDERED: SODIUM CHLORIDE 0.9% 1,000 ML IV PRN (10:37)
[2018-05-16 12:44] LABS: Sedimentation Rate-Westergren 135 MM/HR (0-20)
[2018-05-16] MEDS: ENOXAPARIN 30 MG/0.3 ML SYRINGE SUBCUT SCH (22:23)
[2018-05-16] MEDS: FUROSEMIDE 40 MG/4 ML VIAL IV SCH (22:31)
[2018-05-16] MEDS: LATANOPROST 0.005% OPH SOLN 2.5 ML BOTTLE BOTH EYES SCH (22:34)
[2018-05-16 22:41] LABS: Hematocrit 21.3 VOL% (42.0-52.0); Hemoglobin 6.8 GM/DL (14.0-18.0)
[2018-05-17 06:23] LABS: Basophils % 0.2 % (0.0-0.8); Eosinophils # 0.2 10*3/uL (0.0-0.87); Hematocrit 23.7 VOL% (42.0-52.0); Hemoglobin 7.6 GM/DL (14.0-18.0); Immature Granulocytes % 0.2 %; Immature Granulocytes Absolute 0.01 #; Lymphocytes # 1.5 10*3/uL (1.4-4.0); Lymphocytes % 34.6 % (21.2-54.2); Mean Corpuscular HGB Conc 32.1 GM/DL (32-36); Mean Corpuscular Hemoglobin 30 PG (27-34); Mean Corpuscular Volume 92.6 FL (87-102); Mean Platelet Volume 12.2 FL (9.6-12.0); Monocytes # 0.4 10*3/uL (0.11-0.8); Monocytes % 9.4 % (1.7-12.7); Neutrophils # 2.2 10*3/uL (1.4-7.4); Neutrophils % 51.6 % (38.7-73.9); Platelet Count 136 T/CUMM (130-400); Red Blood Count 2.56 MC/CUMM (3.8-5.5); Red Cell Distribution Width 15.7 % (9.3-17.3); White Blood Count 4.3 T/CUMM (4-12)
[2018-05-17 06:51] LABS: Calcium 8.6 MG/DL (8.5-10.1); Osmolality,Calculated 306.3 MOS/KG (273-304); Potassium 4.1 MMOL/L (3.5-5.1)
[2018-05-17] MEDS: FUROSEMIDE 40 MG/4 ML VIAL IV SCH ×2 (09:35→21:04)
[2018-05-17] MEDS: LISINOPRIL 20 MG TABLET PO SCH (09:35)
[2018-05-17] MEDS: CARVEDILOL 25 MG TABLET PO SCH ×2 (09:35→16:54)
[2018-05-17] MEDS: INSULIN REGULAR 100 UNIT/ML SUBCUT SCH ×4 (09:39→21:10)
[2018-05-17] MEDS: ENOXAPARIN 30 MG/0.3 ML SYRINGE SUBCUT SCH (21:09)
[2018-05-17] MEDS: LATANOPROST 0.005% OPH SOLN 2.5 ML BOTTLE BOTH EYES SCH (21:10)
[2018-05-18 05:59] LABS: Basophils % 0.2 % (0.0-0.8); Eosinophils # 0.2 10*3/uL (0.0-0.87); Eosinophils % 3.4 % (0.00-10.9); Immature Granulocytes % 0.2 %; Immature Granulocytes Absolute 0.01 #; Lymphocytes # 1.4 10*3/uL (1.4-4.0); Lymphocytes % 30.6 % (21.2-54.2); Mean Corpuscular Hemoglobin 30 PG (27-34); Mean Corpuscular Volume 92.6 FL (87-102); Mean Platelet Volume 12.1 FL (9.6-12.0); Monocytes # 0.3 10*3/uL (0.11-0.8); Monocytes % 7.2 % (1.7-12.7); Neutrophils # 2.6 10*3/uL (1.4-7.4); Neutrophils % 58.4 % (38.7-73.9); Platelet Count 147 T/CUMM (130-400); Red Cell Distribution Width 15.3 % (9.3-17.3); White Blood Count 4.5 T/CUMM (4-12)
[2018-05-18 06:22] LABS: Calcium 8.7 MG/DL (8.5-10.1); Potassium 4.4 MMOL/L (3.5-5.1)
[2018-05-18] MEDS: CARVEDILOL 25 MG TABLET PO SCH ×2 (08:36→17:08)
[2018-05-18] MEDS: INSULIN REGULAR 100 UNIT/ML SUBCUT SCH ×7 (08:36→22:01)
[2018-05-18] MEDS: LISINOPRIL 20 MG TABLET PO SCH (08:36)
[2018-05-18] MEDS: FUROSEMIDE 40 MG/4 ML VIAL IV SCH ×2 (08:50→22:00)
[2018-05-18 08:55] LABS: Hemoglobin A1 (Alkaline) 97.1 % (96.5-98.5); Hemoglobin A2 (Alkaline) 2.9 % (1.5-3.5)
[2018-05-18] MEDS: INSULIN NPH 100 UNIT/ML SUBCUT SCH ×2 (10:06→15:43)
[2018-05-18] MEDS: ENOXAPARIN 30 MG/0.3 ML SYRINGE SUBCUT SCH (22:01)
[2018-05-18] MEDS: LATANOPROST 0.005% OPH SOLN 2.5 ML BOTTLE BOTH EYES SCH (22:02)
[2018-05-19] MEDS: INSULIN REGULAR 100 UNIT/ML SUBCUT SCH ×4 (08:25→11:25)
[2018-05-19] MEDS: LISINOPRIL 20 MG TABLET PO SCH (08:26)
[2018-05-19] MEDS: CARVEDILOL 25 MG TABLET PO SCH (08:26)
[2018-05-19] MEDS: FUROSEMIDE 40 MG/4 ML VIAL IV SCH (08:29)
[2018-05-19] MEDS: INSULIN NPH 100 UNIT/ML SUBCUT SCH (08:33)
[2018-05-19 11:34] VITALS: BP 110/65
== END 2018-05-19 15:59 | disposition swing bed (61) | DRG 291 ==
LOC: N.EDINP 17:08 → N.ED 17:08 → N.2E 21:02 → SUATTDRO 05-16 13:00
PROVIDERS: ADMIT Internal Medicine; ATTEND Internal Medicine

== ENCOUNTER 2019-08-18 20:20 | Observation (INO) ==
[2019-08-18] MEDS ORDERED: hydrALAZINE 20 MG/1 ML VIAL ONE (20:59)
[2019-08-18] MEDS ORDERED: hydrALAZINE 20 MG/1 ML VIAL IV STA (21:00)
[2019-08-18] MEDS ORDERED: ONDANSETRON 4 MG/2 ML VIAL IV STA (21:09)
[2019-08-18 21:16] LABS: Basophils % 0.3 % (0.0-0.8); Eosinophils # 0.2 10*3/uL (0.0-0.87); Eosinophils % 5.4 % (0.00-10.9); Hemoglobin 12.7 GM/DL (14.0-18.0); Immature Granulocytes % 0.3 %; Immature Granulocytes Absolute 0.01 #; Lymphocytes # 1.1 10*3/uL (1.4-4.0); Lymphocytes % 37.9 % (21.2-54.2); Mean Corpuscular Volume 102.2 FL (87-102); Mean Platelet Volume 12.2 FL (9.6-12.0); Monocytes % 18.8 % (1.7-12.7); Neutrophils % 37.3 % (38.7-73.9); Platelet Count 101 T/CUMM (130-400); Red Blood Count 4.01 MC/CUMM (3.8-5.5); Red Cell Distribution Width 15.6 % (9.3-17.3)
[2019-08-18 21:31] LABS: Alanine Aminotransferase 19 U/L (16-61); Albumin 2.3 G/DL (3.4-5.0); Alkaline Phosphatase 83 U/L (45-117); Aspartate Amino Transferase 28 U/L (0-37); Bilirubin,Total < 0.39 MG/DL (0.2-1.0); Blood Urea Nitrogen 82 MG/DL (7-18); Calcium 8.3 MG/DL (8.5-10.1); Glucose 184 MG/DL (74-106); Osmolality,Calculated 312.1 MOS/KG (273-304); Total Protein 7.3 G/DL (6.4-8.3)
[2019-08-18 21:36] LABS: Apearance,Urine CLEAR (Clear); Bilirubin,Urine Negative (Negative); Blood, Urine Moderate mg/dL (Negative); Glucose,Urine (UA) 150 mg/dL (Negative); Granular Casts,Urine 4 /LPF (0-1); Hyaline Casts,Urine 1 /LPF (0-3); Ketones,Urine Negative (Negative); Mucus,Urine Occasional /LPF (Occasional); Nitrite,Urine Negative (Negative); Protein,Urine >=500 MG/DL; RBC,Urine 53 /HPF (0-4); Squamous Epithelial Cell,Urine Occasional /HPF (0-10); Urine Color Yellow (Yellow); Urine Specific Gravity 1.016 (1.001-1.035); Urine Urobilinogen < 2.0 EU/DL (0.2-1.0); WBC,Urine 1 /HPF (0-6)
[2019-08-18 21:38] LABS: Estimated Glom Filtration Rate 0 ML/MIN; Troponin I 0.052 NG/ML (0.00-0.045)
[2019-08-18 21:41] LABS: Eosinophils 6 % (0-10); Lymphocytes 45 % (20-55); Macrocytosis 1+; Platelet Estimate Adequate; Segmented Neutrophils 42 % (50-85); Total Cells Counted 100
[2019-08-19] MEDS ORDERED: ACETAMINOPHEN 325 MG TABLET PO PRN (03:12)
[2019-08-19] MEDS ORDERED: DEXTROSE 10% 250 ML BAG IV PRN (03:12)
[2019-08-19] MEDS ORDERED: hydrALAZINE 20 MG/1 ML VIAL IV PRN (03:12)
[2019-08-19] MEDS ORDERED: GLUCAGON 1 MG VIAL IM PRN (03:12)
[2019-08-19] MEDS ORDERED: DOCUSATE SODIUM 100 MG CAPSULE PO PRN (03:12)
[2019-08-19] MEDS ORDERED: ONDANSETRON 4 MG/2 ML VIAL IV PRN (03:12)
[2019-08-19 06:46] LABS: Basophils % 0.6 % (0.0-0.8); Eosinophils # 0.1 10*3/uL (0.0-0.87); Eosinophils % 2.9 % (0.00-10.9); Hematocrit 40.8 VOL% (42.0-52.0); Hemoglobin 12.7 GM/DL (14.0-18.0); Immature Granulocytes % 0.3 %; Immature Granulocytes Absolute 0.01 #; Lymphocytes # 1.4 10*3/uL (1.4-4.0); Lymphocytes % 42.2 % (21.2-54.2); Mean Corpuscular HGB Conc 31.1 GM/DL (32-36); Mean Corpuscular Volume 100.5 FL (87-102); Mean Platelet Volume 12.2 FL (9.6-12.0); Monocytes % 14.7 % (1.7-12.7); Neutrophils % 39.3 % (38.7-73.9); Red Blood Count 4.06 MC/CUMM (3.8-5.5); Red Cell Distribution Width 15.6 % (9.3-17.3); White Blood Count 3.4 T/CUMM (4-12)
[2019-08-19 07:00] LABS: Platelet Count 86 T/CUMM (130-400)
[2019-08-19 07:16] LABS: Calcium 8.6 MG/DL (8.5-10.1); Osmolality,Calculated 316.7 MOS/KG (273-304)
[2019-08-19 08:06] LABS: Burr Cells Slight; Hypochromasia 1+
[2019-08-19 08:07] LABS: Acanthocytes Few; Macrocytosis 1+
[2019-08-19 08:08] LABS: Platelet Estimate Decreased
[2019-08-19] MEDS: INSULIN LISPRO 100 UNIT/ML SUBCUT SCH ×3 (09:01→16:47)
[2019-08-19] MEDS ORDERED: amLODIPine 10 MG TABLET PO SCH (12:00)
[2019-08-19] MEDS ORDERED: HEPARIN 10,000 UNIT/10 ML VIAL IV SCH (14:15)
[2019-08-19 17:26] VITALS: BP 166/89
[2019-08-19] MEDS ORDERED: carvediloL 12.5 MG TABLET PO SCH (21:00)
== END 2019-08-19 17:30 ==
LOC: N.ED 20:20 → INTOOBSV 08-19 00:56 → N.EDINP 08-19 00:56 → N.3E 08-19 01:28
PROVIDERS: ADMIT Internal Medicine; ATTEND Internal Medicine

== ENCOUNTER 2019-11-10 11:38 | Observation (INO) ==
[2019-11-10] MEDS ORDERED: PANTOPRAZOLE 40 MG VIAL IV STA (12:02)
[2019-11-10] MEDS ORDERED: ONDANSETRON 4 MG/2 ML VIAL IV STA (12:02)
[2019-11-10 12:25] LABS: Basophils % 0.3 % (0.0-0.8); Eosinophils # 0.1 10*3/uL (0.0-0.87); Eosinophils % 1.6 % (0.00-10.9); Hematocrit 30.9 VOL% (42.0-52.0); Hemoglobin 9.7 GM/DL (14.0-18.0); Lymphocytes # 1.1 10*3/uL (1.4-4.0); Lymphocytes % 28.8 % (21.2-54.2); Mean Corpuscular HGB Conc 31.4 GM/DL (32-36); Mean Platelet Volume 12.4 FL (9.6-12.0); Neutrophils % 63.3 % (38.7-73.9); Platelet Count 131 T/CUMM (130-400); Red Blood Count 3.22 MC/CUMM (3.8-5.5); White Blood Count 3.9 T/CUMM (4-12)
[2019-11-10 12:31] LABS: INR 1.1; PT Patient Result 11.4 SECS (9.8-11.9)
[2019-11-10 12:59] LABS: Albumin 3.1 G/DL (3.4-5.0); Bilirubin,Total 0.6 MG/DL (0.2-1.0); Calcium 8.3 MG/DL (8.5-10.1); Osmolality,Calculated 299.3 MOS/KG (273-304)
[2019-11-10] MEDS ORDERED: ONDANSETRON 4 MG/2 ML VIAL IV PRN (14:12)
[2019-11-10] MEDS ORDERED: ACETAMINOPHEN 325 MG TABLET PO PRN (14:12)
[2019-11-10] MEDS ORDERED: GLUCAGON 1 MG VIAL IM PRN (14:12)
[2019-11-10] MEDS ORDERED: hydrALAZINE 20 MG/1 ML VIAL IV PRN (14:12)
[2019-11-10] MEDS ORDERED: DEXTROSE 50% 25 GM/50 ML VIAL IV PRN (14:12)
[2019-11-10 16:14] LABS: Ferritin 1509.9 ng/ml (26-388)
[2019-11-10] MEDS: METOPROLOL SUCCINATE XL 100 MG TABLET PO SCH (16:50)
[2019-11-10] MEDS: hydrALAZINE 25 MG TABLET PO SCH (16:50)
[2019-11-10] MEDS: ISOSORBIDE MONONITRATE 60 MG TABLET PO SCH (16:51)
[2019-11-10] MEDS: LOSARTAN 50 MG TABLET PO SCH (16:51)
[2019-11-10 17:04] LABS: INR 1.1; PT Patient Result 11.4 SECS (9.8-11.9)
[2019-11-10] MEDS: INSULIN REGULAR 100 UNIT/ML SUBCUT SCH ×2 (17:52→21:42)
[2019-11-10] MEDS: PANTOPRAZOLE 40 MG VIAL IV SCH (21:42)
[2019-11-10] MEDS ORDERED: SODIUM CHLORIDE 0.9% 250 ML IV ONE (22:37)
[2019-11-11] MEDS: hydrALAZINE 25 MG TABLET PO SCH ×3 (00:31→15:10)
[2019-11-11 06:29] LABS: Basophils % 0.3 % (0.0-0.8); Eosinophils # 0.1 10*3/uL (0.0-0.87); Eosinophils % 1.6 % (0.00-10.9); Hematocrit 26.4 VOL% (42.0-52.0); Hemoglobin 8.8 GM/DL (14.0-18.0); Lymphocytes # 1.4 10*3/uL (1.4-4.0); Lymphocytes % 37.8 % (21.2-54.2); Mean Corpuscular HGB Conc 33.3 GM/DL (32-36); Mean Corpuscular Volume 92.6 FL (87-102); Mean Platelet Volume 12.4 FL (9.6-12.0); Monocytes % 9.3 % (1.7-12.7); Platelet Count 121 T/CUMM (130-400); Red Blood Count 2.85 MC/CUMM (3.8-5.5); Red Cell Distribution Width 15.1 % (9.3-17.3); White Blood Count 3.8 T/CUMM (4-12)
[2019-11-11 07:02] LABS: Calcium 7.9 MG/DL (8.5-10.1); Risk Ratio 3.12; Thyroid Stimulating Hormone 2.65 uIU/ml (0.358-3.74); VLDL CHOLESTEROL 26.2 MG/DL
[2019-11-11] MEDS: LOSARTAN 50 MG TABLET PO SCH (09:25)
[2019-11-11] MEDS: ISOSORBIDE MONONITRATE 60 MG TABLET PO SCH (09:25)
[2019-11-11] MEDS: METOPROLOL SUCCINATE XL 100 MG TABLET PO SCH (09:25)
[2019-11-11] MEDS: PANTOPRAZOLE 40 MG VIAL IV SCH ×2 (09:26→21:51)
[2019-11-11] MEDS: INSULIN REGULAR 100 UNIT/ML SUBCUT SCH ×4 (09:27→21:00)
[2019-11-11 09:30] LABS: % Iron Saturation 57.9 % (18-50); Ferritin 1359.6 ng/ml (26-388)
[2019-11-11 10:44] LABS: Folate 11.2 NG/ML (5.4-24.0)
[2019-11-11 10:54] LABS: Hematocrit 27.6 VOL% (42.0-52.0); Hemoglobin 8.9 GM/DL (14.0-18.0)
[2019-11-11 20:15] LABS: Hematocrit 25.3 VOL% (42.0-52.0); Hemoglobin 7.8 GM/DL (14.0-18.0)
[2019-11-12] MEDS: hydrALAZINE 25 MG TABLET PO SCH ×4 (00:14→15:13)
[2019-11-12 06:00] LABS: Basophils % 0.2 % (0.0-0.8); Eosinophils # 0.1 10*3/uL (0.0-0.87); Eosinophils % 2.9 % (0.00-10.9); Hematocrit 28.2 VOL% (42.0-52.0); Immature Granulocytes % 0.2 %; Immature Granulocytes Absolute 0.01 #; Lymphocytes # 1.9 10*3/uL (1.4-4.0); Lymphocytes % 47.1 % (21.2-54.2); Mean Corpuscular HGB Conc 31.9 GM/DL (32-36); Mean Platelet Volume 12.1 FL (9.6-12.0); Monocytes % 7.6 % (1.7-12.7); Platelet Count 124 T/CUMM (130-400); Red Cell Distribution Width 15.1 % (9.3-17.3); White Blood Count 4.1 T/CUMM (4-12)
[2019-11-12 06:20] LABS: Calcium 7.4 MG/DL (8.5-10.1); Osmolality,Calculated 310.3 MOS/KG (273-304)
[2019-11-12] MEDS: INSULIN REGULAR 100 UNIT/ML SUBCUT SCH ×2 (08:44→11:57)
[2019-11-12] MEDS: METOPROLOL SUCCINATE XL 100 MG TABLET PO SCH ×2 (08:52→10:04)
[2019-11-12] MEDS: ISOSORBIDE MONONITRATE 60 MG TABLET PO SCH ×2 (08:52→10:04)
[2019-11-12] MEDS: LOSARTAN 50 MG TABLET PO SCH ×2 (08:52→10:04)
[2019-11-12] MEDS: PANTOPRAZOLE 40 MG VIAL IV SCH (08:53)
[2019-11-12 17:36] VITALS: BP 121/65
== END 2019-11-12 17:15 | disposition home or self-care (01) ==
LOC: EDSEX → EDBD → EDUNIT# → N.EDINP 11:38 → N.ED 11:38 → SUATTDRO 14:12 → N.3E 14:40
PROVIDERS: ADMIT Internal Medicine; ATTEND Hospitalist

== ENCOUNTER 2019-11-17 14:40 | Observation (INO) ==
[2019-11-17] MEDS ORDERED: ONDANSETRON 4 MG/2 ML VIAL IV STA (15:00)
[2019-11-17] MEDS ORDERED: PANTOPRAZOLE 40 MG VIAL IV STA (15:00)
[2019-11-17 15:50] LABS: Basophils % 0.3 % (0.0-0.8); Eosinophils # 0.1 10*3/uL (0.0-0.87); Eosinophils % 2.3 % (0.00-10.9); Hematocrit 27.7 VOL% (42.0-52.0); Lymphocytes # 1.1 10*3/uL (1.4-4.0); Lymphocytes % 30.6 % (21.2-54.2); Mean Corpuscular HGB Conc 32.5 GM/DL (32-36); Mean Corpuscular Volume 93.6 FL (87-102); Mean Platelet Volume 11.5 FL (9.6-12.0); Monocytes % 8.3 % (1.7-12.7); Neutrophils % 58.5 % (38.7-73.9); Platelet Count 145 T/CUMM (130-400); Red Blood Count 2.96 MC/CUMM (3.8-5.5); Red Cell Distribution Width 15.1 % (9.3-17.3); White Blood Count 3.5 T/CUMM (4-12)
[2019-11-17 16:03] LABS: Albumin 2.9 G/DL (3.4-5.0); Bilirubin,Total 0.5 MG/DL (0.2-1.0); Calcium 7.1 MG/DL (8.5-10.1); Osmolality,Calculated 286.5 MOS/KG (273-304); Total Protein 6.9 G/DL (6.4-8.3)
[2019-11-17] MEDS ORDERED: DEXTROSE 50% 25 GM/50 ML VIAL IV PRN (16:39)
[2019-11-17] MEDS ORDERED: GLUCAGON 1 MG VIAL IM PRN (16:39)
[2019-11-17] MEDS ORDERED: ONDANSETRON 4 MG/2 ML VIAL IV PRN (16:39)
[2019-11-17] MEDS ORDERED: hydrALAZINE 20 MG/1 ML VIAL IV PRN (16:43)
[2019-11-17] MEDS ORDERED: cloNIDine 0.2 MG/24 HR PATCH TRANSDERM SCH (17:00)
[2019-11-17] MEDS ORDERED: PANTOPRAZOLE INJ 200 MG in SODIUM CHLORIDE 0.9% 250 ML IV SCH (17:00)
[2019-11-17 17:27] LABS: INR 1.1; PT Patient Result 11.7 SECS (9.8-11.9)
[2019-11-17 17:30] LABS: Partial Thromboplastin Time 58.4 SECS (23.9-33.8)
[2019-11-17] MEDS: hydrALAZINE 20 MG/1 ML VIAL IV SCH (18:19)
[2019-11-17] MEDS: METOPROLOL TARTRATE 5 MG/5 ML VIAL IV SCH (18:20)
[2019-11-17 18:41] LABS: Hematocrit 28.3 VOL% (42.0-52.0); Hemoglobin 8.9 GM/DL (14.0-18.0)
[2019-11-17] MEDS ORDERED: INSULIN REGULAR 100 UNIT/ML SUBCUT SCH (21:00)
[2019-11-17] MEDS ORDERED: SODIUM PHOSPHATE ENEMA 133 ML BOTTLE RECTAL ONE (21:00)
[2019-11-17 22:45] LABS: Hematocrit 26.7 VOL% (42.0-52.0); Hemoglobin 8.9 GM/DL (14.0-18.0)
[2019-11-18] MEDS: hydrALAZINE 20 MG/1 ML VIAL IV SCH ×3 (00:31→13:18)
[2019-11-18] MEDS: METOPROLOL TARTRATE 5 MG/5 ML VIAL IV SCH ×3 (00:33→13:18)
[2019-11-18 05:38] LABS: Hematocrit 26.5 VOL% (42.0-52.0); Hemoglobin 8.4 GM/DL (14.0-18.0)
[2019-11-18 05:39] LABS: Basophils % 0.3 % (0.0-0.8); Eosinophils # 0.1 10*3/uL (0.0-0.87); Eosinophils % 2.3 % (0.00-10.9); Hematocrit 26.2 VOL% (42.0-52.0); Hemoglobin 8.4 GM/DL (14.0-18.0); Immature Granulocytes % 0.3 %; Immature Granulocytes Absolute 0.01 #; Lymphocytes # 1.6 10*3/uL (1.4-4.0); Lymphocytes % 45.5 % (21.2-54.2); Mean Corpuscular HGB Conc 32.1 GM/DL (32-36); Mean Corpuscular Volume 93.9 FL (87-102); Mean Platelet Volume 12.2 FL (9.6-12.0); Monocytes % 10.2 % (1.7-12.7); Neutrophils % 41.4 % (38.7-73.9); Platelet Count 148 T/CUMM (130-400); Red Blood Count 2.79 MC/CUMM (3.8-5.5); Red Cell Distribution Width 14.9 % (9.3-17.3); White Blood Count 3.4 T/CUMM (4-12)
[2019-11-18 06:11] LABS: Calcium 7.7 MG/DL (8.5-10.1)
[2019-11-18 06:17] LABS: Albumin 2.8 G/DL (3.4-5.0); Calcium 7.8 MG/DL (8.5-10.1); Osmolality,Calculated 288.7 MOS/KG (273-304)
[2019-11-18] MEDS ORDERED: IRON SUCROSE 300 MG in SODIUM CHLORIDE 0.9% 100 ML IV ONE (09:00)
[2019-11-18] MEDS ORDERED: METOCLOPRAMIDE 10 MG/10 ML UDCUP PO SCH (11:30)
[2019-11-18 12:54] VITALS: BP 102/42
== END 2019-11-18 13:37 | disposition home or self-care (01) ==
LOC: EDUNIT# → N.EDINP 14:40 → N.ED 14:40 → N.TELEN 18:22
PROVIDERS: ADMIT Hospitalist; ATTEND Hospitalist

== ENCOUNTER 2019-11-19 16:27 | Inpatient (IN) ==
[2019-11-19] MEDS ORDERED: SODIUM CHLORIDE 0.9% 500 ML IV STA (17:17)
[2019-11-19] MEDS ORDERED: VANCOMYCIN INJ 1,000 MG in SODIUM CHLORIDE 0.9% 250 ML IV STA (17:18)
[2019-11-19] MEDS ORDERED: cefTRIAXone 1,000 MG in SODIUM CHLORIDE 0.9% 100 ML IV STA (17:18)
[2019-11-19 17:29] LABS: Basophils % 0.2 % (0.0-0.8); Eosinophils # 0.1 10*3/uL (0.0-0.87); Eosinophils % 1.5 % (0.00-10.9); Hematocrit 26.4 VOL% (42.0-52.0); Hemoglobin 8.6 GM/DL (14.0-18.0); Immature Granulocytes % 0.2 %; Immature Granulocytes Absolute 0.01 #; Lymphocytes # 2.5 10*3/uL (1.4-4.0); Lymphocytes % 55.1 % (21.2-54.2); Mean Corpuscular HGB Conc 32.6 GM/DL (32-36); Mean Corpuscular Volume 93.6 FL (87-102); Mean Platelet Volume 12.6 FL (9.6-12.0); Monocytes % 9.4 % (1.7-12.7); Neutrophils % 33.6 % (38.7-73.9); Platelet Count 148 T/CUMM (130-400); Red Blood Count 2.82 MC/CUMM (3.8-5.5); Red Cell Distribution Width 14.9 % (9.3-17.3); White Blood Count 4.6 T/CUMM (4-12)
[2019-11-19 17:55] LABS: Albumin 2.9 G/DL (3.4-5.0); Bilirubin,Total 0.6 MG/DL (0.2-1.0); Calcium 8.4 MG/DL (8.5-10.1); Osmolality,Calculated 277.7 MOS/KG (273-304); Total Protein 7.3 G/DL (6.4-8.3)
[2019-11-19 18:12] LABS: Lymphocytes 52 % (20-55); Platelet Estimate Adequate; Segmented Neutrophils 45 % (50-85); Total Cells Counted 100
[2019-11-19] MEDS ORDERED: PROMETHAZINE 25 MG/1 ML VIAL IM PRN (18:32)
[2019-11-19] MEDS ORDERED: DEXTROSE 50% 25 GM/50 ML VIAL IV PRN ×2 (18:32→18:41)
[2019-11-19] MEDS ORDERED: ZALEPLON 5 MG CAPSULE PO PRN (18:32)
[2019-11-19] MEDS ORDERED: GLUCAGON 1 MG VIAL IM PRN (18:32)
[2019-11-19] MEDS ORDERED: ACETAMINOPHEN 325 MG TABLET PO PRN (18:32)
[2019-11-19] MEDS ORDERED: POTASSIUM CHLORIDE 20 MEQ TABLET PO STA (18:41)
[2019-11-19] MEDS ORDERED: ENOXAPARIN 80 MG/0.8 ML SYRINGE SUBCUT SCH (19:00)
[2019-11-19] MEDS ORDERED: AMIODARONE INJ 150 MG in DEXTROSE 5% 100 ML IV ONE (19:30)
[2019-11-19] MEDS ORDERED: AMIODARONE INJ 450 MG in DEXTROSE 5% 241 ML IV SCH (20:00)
[2019-11-19] MEDS: METOPROLOL TARTRATE 50 MG TABLET PO SCH ×2 (21:36→21:37)
[2019-11-19] MEDS: INSULIN REGULAR 100 UNIT/ML SUBCUT SCH (21:37)
[2019-11-20] MEDS ORDERED: AMIODARONE INJ 450 MG in DEXTROSE 5% 241 ML IV SCH (02:00)
[2019-11-20 05:30] LABS: Basophils % 0.4 % (0.0-0.8); Eosinophils # 0.1 10*3/uL (0.0-0.87); Eosinophils % 1.3 % (0.00-10.9); Hematocrit 21.8 VOL% (42.0-52.0); Immature Granulocytes % 0.7 %; Immature Granulocytes Absolute 0.03 #; Lymphocytes # 1.6 10*3/uL (1.4-4.0); Lymphocytes % 34.1 % (21.2-54.2); Mean Corpuscular HGB Conc 32.1 GM/DL (32-36); Mean Corpuscular Volume 95.6 FL (87-102); Mean Platelet Volume 12.1 FL (9.6-12.0); Monocytes % 12.6 % (1.7-12.7); Neutrophils % 50.9 % (38.7-73.9); Platelet Count 117 T/CUMM (130-400); Red Blood Count 2.28 MC/CUMM (3.8-5.5); White Blood Count 4.6 T/CUMM (4-12)
[2019-11-20 05:55] LABS: Osmolality,Calculated 285.5 MOS/KG (273-304)
[2019-11-20] MEDS: METOPROLOL TARTRATE 50 MG TABLET PO SCH ×2 (08:52→21:24)
[2019-11-20] MEDS: INSULIN REGULAR 100 UNIT/ML SUBCUT SCH ×4 (09:14→21:25)
[2019-11-20] MEDS: PANTOPRAZOLE 40 MG TABLET PO SCH (09:14)
[2019-11-20] MEDS: AMIODARONE 200 MG TABLET PO SCH ×2 (09:16→21:24)
[2019-11-20 09:39] LABS: Basophils % 0.2 % (0.0-0.8); Eosinophils # 0.1 10*3/uL (0.0-0.87); Eosinophils % 1.8 % (0.00-10.9); Hematocrit 21.6 VOL% (42.0-52.0); Hemoglobin 6.8 GM/DL (14.0-18.0); Immature Granulocytes % 0.5 %; Immature Granulocytes Absolute 0.02 #; Lymphocytes # 1.8 10*3/uL (1.4-4.0); Mean Corpuscular HGB Conc 31.5 GM/DL (32-36); Mean Corpuscular Volume 95.6 FL (87-102); Mean Platelet Volume 12.1 FL (9.6-12.0); Neutrophils % 45.5 % (38.7-73.9); Platelet Count 110 T/CUMM (130-400); Red Blood Count 2.26 MC/CUMM (3.8-5.5); Red Cell Distribution Width 15.1 % (9.3-17.3); White Blood Count 4.4 T/CUMM (4-12)
[2019-11-20 10:12] LABS: % Iron Saturation 91.2 % (18-50)
[2019-11-20] MEDS: ASCORBIC ACID 500 MG TABLET PO SCH ×2 (10:27→21:26)
[2019-11-21 05:35] LABS: Basophils % 0.3 % (0.0-0.8); Eosinophils # 0.1 10*3/uL (0.0-0.87); Eosinophils % 2.5 % (0.00-10.9); Hematocrit 21.1 VOL% (42.0-52.0); Hemoglobin 6.8 GM/DL (14.0-18.0); Immature Granulocytes % 0.3 %; Immature Granulocytes Absolute 0.01 #; Lymphocytes # 1.7 10*3/uL (1.4-4.0); Lymphocytes % 45.9 % (21.2-54.2); Mean Corpuscular HGB Conc 32.2 GM/DL (32-36); Mean Corpuscular Volume 95.5 FL (87-102); Mean Platelet Volume 12.1 FL (9.6-12.0); Monocytes % 10.7 % (1.7-12.7); Neutrophils % 40.3 % (38.7-73.9); Platelet Count 115 T/CUMM (130-400); Red Blood Count 2.21 MC/CUMM (3.8-5.5); Red Cell Distribution Width 15.5 % (9.3-17.3); White Blood Count 3.7 T/CUMM (4-12)
[2019-11-21 06:06] LABS: Calcium 7.6 MG/DL (8.5-10.1); Osmolality,Calculated 290.4 MOS/KG (273-304)
[2019-11-21] MEDS: INSULIN REGULAR 100 UNIT/ML SUBCUT SCH ×4 (07:50→23:32)
[2019-11-21] MEDS: ASCORBIC ACID 500 MG TABLET PO SCH ×2 (09:04→23:33)
[2019-11-21] MEDS: AMIODARONE 200 MG TABLET PO SCH ×2 (09:04→23:33)
[2019-11-21] MEDS: PANTOPRAZOLE 40 MG TABLET PO SCH (09:04)
[2019-11-21] MEDS: METOPROLOL TARTRATE 50 MG TABLET PO SCH (09:05)
[2019-11-21] MEDS ORDERED: SODIUM CHLORIDE 0.9% 1,000 ML IV PRN ×3 (10:21→11:24)
[2019-11-21] MEDS ORDERED: METOPROLOL TARTRATE 25 MG TABLET PO ONE (11:37)
[2019-11-21] MEDS ORDERED: MAGNESIUM SULF RIDER 2 GM in PREMIX 1 EACH IV ONE (11:53)
[2019-11-21] MEDS ORDERED: POTASSIUM CHLORIDE 10 MEQ TABLET PO ONE (11:58)
[2019-11-21] MEDS: METOPROLOL TARTRATE 25 MG TABLET PO SCH (23:32)
[2019-11-22 05:57] LABS: Basophils % 0.2 % (0.0-0.8); Eosinophils # 0.1 10*3/uL (0.0-0.87); Eosinophils % 2.3 % (0.00-10.9); Hematocrit 21.2 VOL% (42.0-52.0); Hemoglobin 6.6 GM/DL (14.0-18.0); Immature Granulocytes % 0.2 %; Immature Granulocytes Absolute 0.01 #; Lymphocytes % 41.5 % (21.2-54.2); Mean Corpuscular HGB Conc 31.1 GM/DL (32-36); Mean Corpuscular Volume 98.1 FL (87-102); Monocytes % 9.8 % (1.7-12.7); Platelet Count 116 T/CUMM (130-400); Red Blood Count 2.16 MC/CUMM (3.8-5.5); Red Cell Distribution Width 15.5 % (9.3-17.3); White Blood Count 4.7 T/CUMM (4-12)
[2019-11-22 06:07] LABS: Calcium 7.8 MG/DL (8.5-10.1); Osmolality,Calculated 295.5 MOS/KG (273-304)
[2019-11-22] MEDS: INSULIN REGULAR 100 UNIT/ML SUBCUT SCH ×4 (08:43→20:26)
[2019-11-22] MEDS: METOPROLOL TARTRATE 25 MG TABLET PO SCH ×2 (08:57→20:26)
[2019-11-22] MEDS: PANTOPRAZOLE 40 MG TABLET PO SCH (08:57)
[2019-11-22] MEDS: ASCORBIC ACID 500 MG TABLET PO SCH ×2 (08:57→20:26)
[2019-11-22] MEDS: AMIODARONE 200 MG TABLET PO SCH (08:57)
[2019-11-22] MEDS ORDERED: HEPARIN 10,000 UNIT/10 ML VIAL IV SCH (11:30)
[2019-11-23 05:29] LABS: Basophils % 0.2 % (0.0-0.8); Eosinophils # 0.1 10*3/uL (0.0-0.87); Eosinophils % 2.3 % (0.00-10.9); Hematocrit 28.9 VOL% (42.0-52.0); Hemoglobin 9.3 GM/DL (14.0-18.0); Immature Granulocytes % 0.4 %; Immature Granulocytes Absolute 0.02 #; Lymphocytes # 1.8 10*3/uL (1.4-4.0); Lymphocytes % 33.5 % (21.2-54.2); Mean Corpuscular HGB Conc 32.2 GM/DL (32-36); Mean Corpuscular Volume 94.4 FL (87-102); Mean Platelet Volume 12.4 FL (9.6-12.0); Monocytes % 9.9 % (1.7-12.7); Neutrophils % 53.7 % (38.7-73.9); Platelet Count 111 T/CUMM (130-400); Red Blood Count 3.06 MC/CUMM (3.8-5.5); Red Cell Distribution Width 15.8 % (9.3-17.3); White Blood Count 5.2 T/CUMM (4-12)
[2019-11-23 05:40] LABS: Calcium 8.1 MG/DL (8.5-10.1); Osmolality,Calculated 282.8 MOS/KG (273-304)
[2019-11-23] MEDS: PANTOPRAZOLE 40 MG TABLET PO SCH ×2 (09:36→22:01)
[2019-11-23] MEDS: ASCORBIC ACID 500 MG TABLET PO SCH ×2 (09:36→22:01)
[2019-11-23] MEDS: METOPROLOL TARTRATE 25 MG TABLET PO SCH ×2 (09:36→22:01)
[2019-11-23] MEDS: INSULIN REGULAR 100 UNIT/ML SUBCUT SCH ×4 (09:37→20:45)
[2019-11-24 06:29] LABS: Basophils % 0.2 % (0.0-0.8); Eosinophils # 0.1 10*3/uL (0.0-0.87); Eosinophils % 2.3 % (0.00-10.9); Hematocrit 29.3 VOL% (42.0-52.0); Hemoglobin 9.5 GM/DL (14.0-18.0); Immature Granulocytes % 0.2 %; Immature Granulocytes Absolute 0.01 #; Lymphocytes # 2.1 10*3/uL (1.4-4.0); Lymphocytes % 41.4 % (21.2-54.2); Mean Corpuscular HGB Conc 32.4 GM/DL (32-36); Mean Corpuscular Volume 92.1 FL (87-102); Mean Platelet Volume 11.7 FL (9.6-12.0); Monocytes % 11.1 % (1.7-12.7); Neutrophils % 44.8 % (38.7-73.9); Platelet Count 118 T/CUMM (130-400); Red Blood Count 3.18 MC/CUMM (3.8-5.5); Red Cell Distribution Width 15.1 % (9.3-17.3); White Blood Count 5.1 T/CUMM (4-12)
[2019-11-24 06:48] LABS: Platelet Estimate Adequate
[2019-11-24 06:49] LABS: Anisocytosis 2+; Burr Cells Few; Macrocytosis 1+; Poikilocytosis Slight
[2019-11-24] MEDS: SODIUM CHLORIDE 0.9% 1,000 ML IV SCH (07:10)
[2019-11-24] MEDS ORDERED: ePHEDrine 50 MG/ML VIAL ONE (08:06)
[2019-11-24] MEDS ORDERED: LIDOCAINE 2% 5 ML VIAL ONE (09:00)
[2019-11-24] MEDS ORDERED: ETOMIDATE 20 MG/10 ML VIAL IV ONE (09:00)
[2019-11-24] MEDS ORDERED: propofoL 200 MG/20 ML VIAL IV ONE (09:00)
[2019-11-24] MEDS: INSULIN REGULAR 100 UNIT/ML SUBCUT SCH ×3 (15:02→22:40)
[2019-11-24] MEDS: ASCORBIC ACID 500 MG TABLET PO SCH ×2 (15:58→22:40)
[2019-11-24] MEDS: PANTOPRAZOLE 40 MG TABLET PO SCH ×2 (15:58→22:40)
[2019-11-24] MEDS: BISACODYL 5 MG TABLET PO SCH ×2 (15:59→17:28)
[2019-11-24] MEDS: METOPROLOL TARTRATE 25 MG TABLET PO SCH ×2 (15:59→22:40)
[2019-11-24] MEDS ORDERED: POLYETHYLENE GLYCOL 3350/ELECTROLYTES 4,000 ML BOTTLE PO ONE (18:00)
[2019-11-24] MEDS ORDERED: MAGNESIUM CITRATE 300 ML BOTTLE PO ONE (21:00)
[2019-11-25] MEDS: BISACODYL 5 MG TABLET PO SCH
[2019-11-25 05:52] LABS: Basophils % 0.4 % (0.0-0.8); Eosinophils # 0.1 10*3/uL (0.0-0.87); Eosinophils % 2.3 % (0.00-10.9); Hematocrit 30.7 VOL% (42.0-52.0); Hemoglobin 10.2 GM/DL (14.0-18.0); Immature Granulocytes % 0.2 %; Immature Granulocytes Absolute 0.01 #; Lymphocytes # 1.6 10*3/uL (1.4-4.0); Lymphocytes % 33.9 % (21.2-54.2); Mean Corpuscular HGB Conc 33.2 GM/DL (32-36); Mean Corpuscular Volume 91.4 FL (87-102); Mean Platelet Volume 12.1 FL (9.6-12.0); Monocytes % 10.3 % (1.7-12.7); Neutrophils % 52.9 % (38.7-73.9); Platelet Count 122 T/CUMM (130-400); Red Blood Count 3.36 MC/CUMM (3.8-5.5); Red Cell Distribution Width 15.2 % (9.3-17.3); White Blood Count 4.8 T/CUMM (4-12)
[2019-11-25 06:12] LABS: Calcium 8.4 MG/DL (8.5-10.1)
[2019-11-25] MEDS: INSULIN REGULAR 100 UNIT/ML SUBCUT SCH ×4 (10:29→21:43)
[2019-11-25] MEDS: SODIUM CHLORIDE 0.9% 1,000 ML IV SCH (10:29)
[2019-11-25] MEDS: METOPROLOL TARTRATE 25 MG TABLET PO SCH ×2 (10:30→20:39)
[2019-11-25] MEDS: ASCORBIC ACID 500 MG TABLET PO SCH ×2 (10:30→20:38)
[2019-11-25] MEDS: PANTOPRAZOLE 40 MG TABLET PO SCH ×2 (10:30→20:39)
[2019-11-25] MEDS ORDERED: TUBERCULIN SKIN TEST 0.1 ML SYRINGE INTRADERM ONE (11:10)
[2019-11-25] MEDS: ONDANSETRON 4 MG/2 ML VIAL IV PRN ×2 (11:31→17:21)
[2019-11-25] MEDS: METOCLOPRAMIDE 10 MG/2 ML VIAL IV SCH (18:21)
[2019-11-25] MEDS ORDERED: MAGNESIUM CITRATE 300 ML BOTTLE PO ONE (21:00)
[2019-11-26] MEDS: METOCLOPRAMIDE 10 MG/2 ML VIAL IV SCH ×3 (01:00→16:11)
[2019-11-26] MEDS ORDERED: SODIUM CHLORIDE 0.9% 500 ML IV SCH (07:20)
[2019-11-26] MEDS ORDERED: ASPIRIN EC 81 MG TABLET PO SCH (09:30)
[2019-11-26] MEDS: SODIUM CHLORIDE 0.9% 1,000 ML IV SCH (09:38)
[2019-11-26] MEDS: METOPROLOL TARTRATE 25 MG TABLET PO SCH (09:39)
[2019-11-26] MEDS: INSULIN REGULAR 100 UNIT/ML SUBCUT SCH ×3 (09:39→17:34)
[2019-11-26] MEDS: ASCORBIC ACID 500 MG TABLET PO SCH (09:39)
[2019-11-26] MEDS: PANTOPRAZOLE 40 MG TABLET PO SCH (09:39)
[2019-11-26] MEDS ORDERED: propofoL 200 MG/20 ML VIAL IV ONE (10:00)
[2019-11-26] MEDS ORDERED: LIDOCAINE 2% 5 ML VIAL ONE (10:00)
[2019-11-26 10:13] LABS: Basophils % 0.2 % (0.0-0.8); Eosinophils # 0.1 10*3/uL (0.0-0.87); Eosinophils % 3.2 % (0.00-10.9); Hematocrit 31.9 VOL% (42.0-52.0); Hemoglobin 10.4 GM/DL (14.0-18.0); Immature Granulocytes % 0.2 %; Immature Granulocytes Absolute 0.01 #; Lymphocytes # 1.8 10*3/uL (1.4-4.0); Lymphocytes % 41.9 % (21.2-54.2); Mean Corpuscular HGB Conc 32.6 GM/DL (32-36); Mean Corpuscular Volume 92.7 FL (87-102); Mean Platelet Volume 11.2 FL (9.6-12.0); Monocytes % 9.8 % (1.7-12.7); Neutrophils % 44.7 % (38.7-73.9); Platelet Count 115 T/CUMM (130-400); Red Blood Count 3.44 MC/CUMM (3.8-5.5); Red Cell Distribution Width 15.5 % (9.3-17.3); White Blood Count 4.4 T/CUMM (4-12)
[2019-11-26 10:30] LABS: Hypochromasia 1+; Microcytosis Slight
[2019-11-26] MEDS ORDERED: NITROGLYCERIN SL 0.4 MG TABLET SL ONE (10:40)
[2019-11-26 11:31] LABS: Hepatitis B Surface Ag Quant < 0.10 Index; Hepatitis B Surface Ag Result Negative (Negative)
[2019-11-26 16:41] VITALS: BP 115/63
== END 2019-11-26 18:44 | disposition swing bed (61) | DRG 308 ==
LOC: N.ED 16:27 → SUATTDRO 18:32 → N.EDINP 18:32 → N.TELES 21:36
PROVIDERS: ADMIT Family Medicine; ATTEND Family Medicine

== ENCOUNTER 2020-03-15 16:48 | Inpatient (IN) ==
[2020-03-15] MEDS ORDERED: SODIUM CHLORIDE 0.9% 500 ML IV STA (17:15)
[2020-03-15 18:15] LABS: Basophils % 0.2 % (0.0-0.8); Hematocrit 38.2 VOL% (42.0-52.0); Hemoglobin 12.4 GM/DL (14.0-18.0); Immature Granulocytes % 0.5 %; Immature Granulocytes Absolute 0.03 #; Lymphocytes # 1.3 10*3/uL (1.4-4.0); Lymphocytes % 20.1 % (21.2-54.2); Mean Corpuscular HGB Conc 32.5 GM/DL (32-36); Mean Corpuscular Volume 93.6 FL (87-102); Mean Platelet Volume 11.3 FL (9.6-12.0); Monocytes % 3.8 % (1.7-12.7); Neutrophils % 75.4 % (38.7-73.9); Platelet Count 119 T/CUMM (130-400); Red Blood Count 4.08 MC/CUMM (3.8-5.5); Red Cell Distribution Width 15.2 % (9.3-17.3); White Blood Count 6.5 T/CUMM (4-12)
[2020-03-15 18:36] LABS: INR 1.1; PT Patient Result 11.8 SECS (9.8-11.9); Partial Thromboplastin Time 37.3 SECS (23.9-33.8)
[2020-03-15 18:40] LABS: Albumin 2.8 G/DL (3.4-5.0); Bilirubin,Total 0.4 MG/DL (0.2-1.0); Calcium 8.9 MG/DL (8.5-10.1); Osmolality,Calculated 292.2 MOS/KG (273-304); Total Protein 7.3 G/DL (6.4-8.3)
[2020-03-15 18:44] LABS: CKMB % 0.4 %
[2020-03-15 18:47] LABS: Troponin I 3.99 NG/ML (0.00-0.045)
[2020-03-15 18:54] LABS: Ferritin 7311.3 ng/ml (26-388)
[2020-03-15 18:59] LABS: Bacteria,Urine Moderate /HPF (Few); Bilirubin,Urine Negative (Negative); Blood, Urine Moderate mg/dL (Negative); Glucose,Urine (UA) Negative (Negative); Ketones,Urine Negative (Negative); Nitrite,Urine Negative (Negative); Protein,Urine >=500 MG/DL; RBC,Urine 7 /HPF (0-4); Urine Appearance CLOUDY (Clear); Urine Color Amber (Yellow); Urine Specific Gravity 1.011 (1.001-1.035); Urine Urobilinogen < 2.0 EU/DL (0.2-1.0); WBC,Urine 106 /HPF (0-6)
[2020-03-15] MEDS ORDERED: ASPIRIN CHEW 81 MG TABLET PO STA (19:02)
[2020-03-15] MEDS ORDERED: DILTIAZEM 50 MG/10 ML VIAL IV STA (19:02)
[2020-03-15] MEDS ORDERED: MORPHINE 4 MG/1 ML VIAL IV ONE (19:11)
[2020-03-15 19:38] LABS: Anisocytosis 1+; Burr Cells Few
[2020-03-15 19:39] LABS: Macrocytosis Slight; Ovalocytes Few; Schistocytes Few
[2020-03-15 19:40] LABS: Microcytosis Slight; Platelet Estimate Adequate; Poikilocytosis Few
[2020-03-15] MEDS ORDERED: ACETAMINOPHEN 500 MG TABLET ONE (19:47)
[2020-03-15] MEDS ORDERED: ACETAMINOPHEN 500 MG TABLET PO STA (19:58)
[2020-03-15] MEDS ORDERED: CETIRIZINE 10 MG TABLET PO PRN (19:58)
[2020-03-15] MEDS ORDERED: ALBUTEROL 2.5 MG/3 ML NEB RESP TX PRN (20:07)
[2020-03-15] MEDS ORDERED: ONDANSETRON 4 MG/2 ML VIAL IV PRN (20:14)
[2020-03-15] MEDS ORDERED: BISACODYL 5 MG TABLET PO PRN (20:14)
[2020-03-15] MEDS ORDERED: ACETAMINOPHEN 325 MG TABLET PO PRN (20:14)
[2020-03-15] MEDS ORDERED: FAMOTIDINE 20 MG/2 ML VIAL IV SCH (20:30)
[2020-03-15] MEDS: AZITHROMYCIN INJ 500 MG in SODIUM CHLORIDE 0.9% 250 ML IV SCH (20:56)
[2020-03-15] MEDS ORDERED: FAMOTIDINE 20 MG TABLET PO SCH (21:00)
[2020-03-15] MEDS ORDERED: cefTRIAXone 2,000 MG in SODIUM CHLORIDE 0.9% 100 ML IV SCH (21:00)
[2020-03-15] MEDS ORDERED: GLUCAGON 1 MG VIAL IM PRN (21:13)
[2020-03-15] MEDS: HEPARIN DRIP 25,000 UNITS/500 ML PREMIX IV SCH (21:28)
[2020-03-15] MEDS: DOCUSATE SODIUM 100 MG CAPSULE PO SCH (22:19)
[2020-03-15] MEDS: hydrALAZINE 25 MG TABLET PO SCH (22:19)
[2020-03-15] MEDS: INSULIN GLARGINE 100 UNIT/ML SUBCUT SCH (22:20)
[2020-03-15] MEDS: INSULIN REGULAR 100 UNIT/ML SUBCUT SCH (22:20)
[2020-03-15] MEDS: MEMANTINE 10 MG TABLET PO SCH (22:20)
[2020-03-15] MEDS: METOPROLOL TARTRATE 25 MG TABLET PO SCH (22:20)
[2020-03-15] MEDS: GABAPENTIN 100 MG CAPSULE PO SCH (22:20)
[2020-03-15] MEDS: MIRTAZAPINE 15 MG TABLET PO SCH (22:22)
[2020-03-15] MEDS: PANTOPRAZOLE 40 MG TABLET PO SCH (22:22)
[2020-03-15] MEDS: ASCORBIC ACID 500 MG TABLET PO SCH (22:22)
[2020-03-15] MEDS: INSULIN LISPRO 100 UNIT/ML SUBCUT SCH (22:23)
[2020-03-16] MEDS: cefTRIAXone 2,000 MG in SYRINGE 1 EACH IV SCH ×2 (00:01→23:54)
[2020-03-16 05:03] LABS: Basophils % 0.2 % (0.0-0.8); Hematocrit 33.9 VOL% (42.0-52.0); Hemoglobin 11.2 GM/DL (14.0-18.0); Immature Granulocytes % 0.6 %; Immature Granulocytes Absolute 0.03 #; Lymphocytes # 1.2 10*3/uL (1.4-4.0); Lymphocytes % 24.4 % (21.2-54.2); Mean Corpuscular Volume 92.6 FL (87-102); Mean Platelet Volume 10.6 FL (9.6-12.0); Monocytes % 4.2 % (1.7-12.7); Neutrophils % 70.6 % (38.7-73.9); Platelet Count 108 T/CUMM (130-400); Red Blood Count 3.66 MC/CUMM (3.8-5.5)
[2020-03-16 05:21] LABS: Albumin 2.3 G/DL (3.4-5.0); Bilirubin,Total 0.4 MG/DL (0.2-1.0); Calcium 8.7 MG/DL (8.5-10.1); Osmolality,Calculated 291.2 MOS/KG (273-304); Risk Ratio 2.28; Total Protein 6.9 G/DL (6.4-8.3)
[2020-03-16 05:27] LABS: Platelet Estimate Normal
[2020-03-16] MEDS: hydrALAZINE 25 MG TABLET PO SCH ×3 (05:31→20:53)
[2020-03-16] MEDS: INSULIN REGULAR 100 UNIT/ML SUBCUT SCH ×3 (08:00→17:28)
[2020-03-16] MEDS: DEXTROSE 50% 25 GM/50 ML VIAL IV PRN ×2 (08:53→11:23)
[2020-03-16] MEDS: DOCUSATE SODIUM 100 MG CAPSULE PO SCH ×2 (09:00→21:02)
[2020-03-16] MEDS: SEVELAMER CARBONATE 800 MG TABLET PO SCH ×3 (09:00→18:09)
[2020-03-16] MEDS: ISOSORBIDE MONONITRATE 60 MG TABLET PO SCH (09:00)
[2020-03-16] MEDS: LOSARTAN 50 MG TABLET PO SCH (09:00)
[2020-03-16] MEDS: TAMSULOSIN 0.4 MG CAPSULE PO SCH (09:00)
[2020-03-16] MEDS: GABAPENTIN 300 MG CAPSULE PO SCH (09:00)
[2020-03-16] MEDS: ASCORBIC ACID 500 MG TABLET PO SCH ×2 (09:00→20:53)
[2020-03-16] MEDS: CHOLECALCIFEROL 1,000 UNIT TABLET PO SCH (09:00)
[2020-03-16] MEDS: METOPROLOL TARTRATE 25 MG TABLET PO SCH ×2 (09:00→22:40)
[2020-03-16] MEDS: MEMANTINE 10 MG TABLET PO SCH ×2 (09:00→20:53)
[2020-03-16] MEDS: MULTIVITAMIN (BEROCCA) TABLET PO SCH (09:00)
[2020-03-16] MEDS: PANTOPRAZOLE 40 MG TABLET PO SCH ×2 (09:00→20:53)
[2020-03-16] MEDS ORDERED: ASCORBIC ACID 500 MG TABLET PO SCH (09:00)
[2020-03-16] MEDS: ASPIRIN EC 81 MG TABLET PO SCH (09:00)
[2020-03-16] MEDS: ZINC SULFATE 220 MG CAPSULE PO SCH (09:00)
[2020-03-16] MEDS: DEXAMETHASONE 10 MG/1 ML VIAL IV SCH (09:14)
[2020-03-16] MEDS: INSULIN LISPRO 100 UNIT/ML SUBCUT SCH ×4 (09:15→22:37)
[2020-03-16 10:21] LABS: INR 1.1; PT Patient Result 12.1 SECS (9.8-11.9)
[2020-03-16 10:53] LABS: Partial Thromboplastin Time 140.5 SECS (23.9-33.8)
[2020-03-16] MEDS: DEXTROSE 5% NACL 0.9% 1,000 ML IV SCH (11:23)
[2020-03-16] MEDS: GABAPENTIN 100 MG CAPSULE PO SCH ×2 (15:22→20:53)
[2020-03-16 16:42] LABS: INR 1.2; PT Patient Result 12.3 SECS (9.8-11.9)
[2020-03-16 16:54] LABS: Partial Thromboplastin Time > 211.8 SECS (23.9-33.8)
[2020-03-16] MEDS: AZITHROMYCIN INJ 500 MG in SODIUM CHLORIDE 0.9% 250 ML IV SCH (20:46)
[2020-03-16] MEDS: MIRTAZAPINE 15 MG TABLET PO SCH (20:53)
[2020-03-16] MEDS: HEPARIN DRIP 25,000 UNITS/500 ML PREMIX IV SCH (22:37)
[2020-03-16] MEDS: INSULIN GLARGINE 100 UNIT/ML SUBCUT SCH (22:38)
[2020-03-17] MEDS: MORPHINE 4 MG/1 ML VIAL IV PRN ×2 (00:47→22:10)
[2020-03-17 01:31] LABS: INR 1.1; PT Patient Result 11.8 SECS (9.8-11.9)
[2020-03-17 01:32] LABS: Partial Thromboplastin Time 47.9 SECS (23.9-33.8)
[2020-03-17] MEDS: hydrALAZINE 20 MG/1 ML VIAL IV PRN (04:04)
[2020-03-17] MEDS: hydrALAZINE 25 MG TABLET PO SCH ×3 (05:16→23:42)
[2020-03-17 06:29] LABS: Basophils % 0.2 % (0.0-0.8); Hematocrit 38.9 VOL% (42.0-52.0); Hemoglobin 13.2 GM/DL (14.0-18.0); Immature Granulocytes % 0.7 %; Immature Granulocytes Absolute 0.04 #; Lymphocytes # 0.9 10*3/uL (1.4-4.0); Lymphocytes % 15.9 % (21.2-54.2); Mean Corpuscular HGB Conc 33.9 GM/DL (32-36); Mean Corpuscular Volume 91.3 FL (87-102); Mean Platelet Volume 12.1 FL (9.6-12.0); Monocytes % 3.4 % (1.7-12.7); Neutrophils % 79.8 % (38.7-73.9); Platelet Count 108 T/CUMM (130-400); Red Blood Count 4.26 MC/CUMM (3.8-5.5); Red Cell Distribution Width 15.3 % (9.3-17.3); White Blood Count 5.9 T/CUMM (4-12)
[2020-03-17 07:00] LABS: Anisocytosis 2+; Band Neutrophils 19 % (0-10); Burr Cells 2+; Lymphocytes 16 % (20-55); Macrocytosis 1+; Metamyelocytes 1 %; Platelet Estimate Adequate; Segmented Neutrophils 62 % (50-85); Total Cells Counted 100
[2020-03-17 07:05] LABS: Albumin 2.3 G/DL (3.4-5.0); Bilirubin,Total 0.4 MG/DL (0.2-1.0); Osmolality,Calculated 297.4 MOS/KG (273-304); Total Protein 7.4 G/DL (6.4-8.3)
[2020-03-17 07:06] LABS: CKMB % 0.6 %
[2020-03-17 07:09] LABS: Troponin I 1.71 NG/ML (0.00-0.045)
[2020-03-17] MEDS: INSULIN REGULAR 100 UNIT/ML SUBCUT SCH (07:33)
[2020-03-17] MEDS: INSULIN LISPRO 100 UNIT/ML SUBCUT SCH ×4 (08:27→22:11)
[2020-03-17] MEDS: DEXAMETHASONE 10 MG/1 ML VIAL IV SCH (08:27)
[2020-03-17] MEDS: DOCUSATE SODIUM 100 MG CAPSULE PO SCH ×2 (08:45→22:10)
[2020-03-17] MEDS: LOSARTAN 50 MG TABLET PO SCH (08:45)
[2020-03-17] MEDS: ASPIRIN EC 81 MG TABLET PO SCH (08:45)
[2020-03-17] MEDS: MULTIVITAMIN (BEROCCA) TABLET PO SCH (08:45)
[2020-03-17] MEDS: SEVELAMER CARBONATE 800 MG TABLET PO SCH ×3 (08:45→16:47)
[2020-03-17] MEDS: PANTOPRAZOLE 40 MG TABLET PO SCH ×2 (08:48→22:11)
[2020-03-17] MEDS: ASCORBIC ACID 500 MG TABLET PO SCH ×2 (08:48→22:12)
[2020-03-17] MEDS: METOPROLOL TARTRATE 25 MG TABLET PO SCH ×2 (08:48→22:11)
[2020-03-17] MEDS: MEMANTINE 10 MG TABLET PO SCH ×2 (08:48→22:11)
[2020-03-17] MEDS: ISOSORBIDE MONONITRATE 60 MG TABLET PO SCH (08:48)
[2020-03-17] MEDS: GABAPENTIN 300 MG CAPSULE PO SCH (08:48)
[2020-03-17] MEDS: TAMSULOSIN 0.4 MG CAPSULE PO SCH (08:48)
[2020-03-17] MEDS: CHOLECALCIFEROL 1,000 UNIT TABLET PO SCH (08:48)
[2020-03-17] MEDS ORDERED: SODIUM CHLORIDE 0.45% 1,000 ML IV SCH (09:00)
[2020-03-17 09:41] LABS: INR 1.1; PT Patient Result 11.9 SECS (9.8-11.9); Partial Thromboplastin Time 73.8 SECS (23.9-33.8)
[2020-03-17] MEDS: DEXTROSE 5% NACL 0.9% 1,000 ML IV SCH (11:15)
[2020-03-17] MEDS: HEPARIN DRIP 25,000 UNITS/500 ML PREMIX IV SCH ×2 (12:00→23:42)
[2020-03-17] MEDS ORDERED: HEPARIN 10,000 UNIT/10 ML VIAL IV SCH (15:30)
[2020-03-17] MEDS: GABAPENTIN 100 MG CAPSULE PO SCH (16:04)
[2020-03-17] MEDS: AZITHROMYCIN INJ 500 MG in SODIUM CHLORIDE 0.9% 250 ML IV SCH (20:20)
[2020-03-17] MEDS: GABAPENTIN 50 MG/ML 30 ML/BOTTLE PO SCH (22:11)
[2020-03-17] MEDS: MIRTAZAPINE 15 MG TABLET PO SCH (22:11)
[2020-03-18] MEDS: cefTRIAXone 2,000 MG in SYRINGE 1 EACH IV SCH ×2 (00:10→23:12)
[2020-03-18] MEDS: hydrALAZINE 25 MG TABLET PO SCH ×3 (05:00→21:15)
[2020-03-18 06:58] LABS: Basophils % 0.1 % (0.0-0.8); Hematocrit 37.8 VOL% (42.0-52.0); Hemoglobin 12.5 GM/DL (14.0-18.0); Immature Granulocytes Absolute 0.09 #; Lymphocytes # 0.6 10*3/uL (1.4-4.0); Lymphocytes % 6.6 % (21.2-54.2); Mean Corpuscular HGB Conc 33.1 GM/DL (32-36); Mean Corpuscular Volume 91.3 FL (87-102); Mean Platelet Volume 12.4 FL (9.6-12.0); Monocytes % 2.5 % (1.7-12.7); Neutrophils % 89.8 % (38.7-73.9); Platelet Count 142 T/CUMM (130-400); Red Blood Count 4.14 MC/CUMM (3.8-5.5); Red Cell Distribution Width 15.3 % (9.3-17.3); White Blood Count 8.9 T/CUMM (4-12)
[2020-03-18 07:31] LABS: Ferritin 12834.5 ng/ml (26-388)
[2020-03-18] MEDS: INSULIN LISPRO 100 UNIT/ML SUBCUT SCH ×3 (08:08→21:14)
[2020-03-18] MEDS: ASPIRIN EC 81 MG TABLET PO SCH (08:09)
[2020-03-18] MEDS: PANTOPRAZOLE 40 MG TABLET PO SCH ×2 (08:09→21:16)
[2020-03-18] MEDS: MEMANTINE 10 MG TABLET PO SCH ×2 (08:09→21:16)
[2020-03-18] MEDS: ASCORBIC ACID 500 MG TABLET PO SCH ×2 (08:09→21:15)
[2020-03-18] MEDS: DEXAMETHASONE 10 MG/1 ML VIAL IV SCH (08:09)
[2020-03-18] MEDS: ZINC SULFATE 220 MG CAPSULE PO SCH (08:09)
[2020-03-18] MEDS: MULTIVITAMIN (BEROCCA) TABLET PO SCH (08:10)
[2020-03-18] MEDS: METOPROLOL TARTRATE 25 MG TABLET PO SCH ×2 (08:10→21:15)
[2020-03-18] MEDS: SEVELAMER CARBONATE 800 MG TABLET PO SCH ×3 (08:10→16:14)
[2020-03-18] MEDS: CHOLECALCIFEROL 1,000 UNIT TABLET PO SCH (08:10)
[2020-03-18] MEDS: LOSARTAN 50 MG TABLET PO SCH (08:10)
[2020-03-18] MEDS: ISOSORBIDE MONONITRATE 60 MG TABLET PO SCH (08:10)
[2020-03-18] MEDS: TAMSULOSIN 0.4 MG CAPSULE PO SCH (08:10)
[2020-03-18] MEDS: DOCUSATE SODIUM 100 MG CAPSULE PO SCH ×2 (08:11→21:16)
[2020-03-18] MEDS: GABAPENTIN 50 MG/ML 30 ML/BOTTLE PO SCH ×3 (08:35→21:16)
[2020-03-18 09:29] LABS: Calcium 8.3 MG/DL (8.5-10.1); Osmolality,Calculated 299.2 MOS/KG (273-304)
[2020-03-18] MEDS: AZITHROMYCIN INJ 500 MG in SODIUM CHLORIDE 0.9% 250 ML IV SCH (20:30)
[2020-03-18] MEDS: MIRTAZAPINE 15 MG TABLET PO SCH (21:16)
[2020-03-18] MEDS: INSULIN GLARGINE 100 UNIT/ML SUBCUT SCH (21:16)
[2020-03-18] MEDS: HEPARIN DRIP 25,000 UNITS/500 ML PREMIX IV SCH (22:03)
[2020-03-19] MEDS: INSULIN LISPRO 100 UNIT/ML SUBCUT SCH ×4 (00:25→17:32)
[2020-03-19] MEDS ORDERED: VECURONIUM 10 MG VIAL IV ONE ×2 (04:00→04:11)
[2020-03-19] MEDS ORDERED: ETOMIDATE 20 MG/10 ML VIAL IV ONE ×2 (04:00→04:09)
[2020-03-19 05:12] LABS: ABG Base Excess -3.8 MMOL/L (-2.5-2.5); ABG HCO3 21.2 MMOL/L (20-26); ABG Oxygen Saturation 94.2 % (95-100); ABG PCO2 47.5 MM HG (35-48); ABG PH 7.293 (7.35-7.45); ABG PO2 88.2 MM HG (80-95); ABG TCO2 20.9 MMOL/L (23-27); Allen Test Positive; Pt O2 Delivery Device Ventilator
[2020-03-19] MEDS: hydrALAZINE 25 MG TABLET PO SCH ×3 (05:17→21:22)
[2020-03-19 05:18] LABS: Hematocrit 33.3 VOL% (42.0-52.0); Hemoglobin 11.3 GM/DL (14.0-18.0); Immature Granulocytes % 0.8 %; Immature Granulocytes Absolute 0.06 #; Lymphocytes # 0.5 10*3/uL (1.4-4.0); Lymphocytes % 6.5 % (21.2-54.2); Mean Corpuscular HGB Conc 33.9 GM/DL (32-36); Mean Corpuscular Volume 90.7 FL (87-102); Mean Platelet Volume 11.6 FL (9.6-12.0); Monocytes % 1.7 % (1.7-12.7); Platelet Count 121 T/CUMM (130-400); Red Blood Count 3.67 MC/CUMM (3.8-5.5); Red Cell Distribution Width 15.4 % (9.3-17.3); White Blood Count 7.2 T/CUMM (4-12)
[2020-03-19 05:44] LABS: Calcium 8.2 MG/DL (8.5-10.1); Osmolality,Calculated 300.1 MOS/KG (273-304)
[2020-03-19 07:22] LABS: Band Neutrophils 2 % (0-10); Lymphocytes 2 % (20-55); Segmented Neutrophils 94 % (50-85); Total Cells Counted 100
[2020-03-19 07:23] LABS: Platelet Estimate Adequate; Polychromasia Slight
[2020-03-19] MEDS: MULTIVITAMIN (BEROCCA) TABLET PO SCH (08:04)
[2020-03-19] MEDS: PANTOPRAZOLE 40 MG TABLET PO SCH ×2 (08:04→21:22)
[2020-03-19] MEDS: CHOLECALCIFEROL 1,000 UNIT TABLET PO SCH (08:04)
[2020-03-19] MEDS: METOPROLOL TARTRATE 25 MG TABLET PO SCH ×2 (08:04→21:23)
[2020-03-19] MEDS: LOSARTAN 50 MG TABLET PO SCH (08:04)
[2020-03-19] MEDS: SEVELAMER CARBONATE 800 MG TABLET PO SCH ×3 (08:04→16:46)
[2020-03-19] MEDS: ASCORBIC ACID 500 MG TABLET PO SCH ×2 (08:04→21:23)
[2020-03-19] MEDS: MEMANTINE 10 MG TABLET PO SCH ×2 (08:04→21:23)
[2020-03-19] MEDS: ISOSORBIDE MONONITRATE 60 MG TABLET PO SCH (08:04)
[2020-03-19] MEDS: ASPIRIN EC 81 MG TABLET PO SCH (08:05)
[2020-03-19] MEDS: DOCUSATE SODIUM 100 MG CAPSULE PO SCH ×2 (08:05→21:29)
[2020-03-19] MEDS: TAMSULOSIN 0.4 MG CAPSULE PO SCH (08:05)
[2020-03-19] MEDS: DEXAMETHASONE 10 MG/1 ML VIAL IV SCH (08:05)
[2020-03-19] MEDS: GABAPENTIN 50 MG/ML 30 ML/BOTTLE PO SCH ×3 (08:56→21:23)
[2020-03-19 09:57] LABS: Ferritin 13201.9 ng/ml (26-388)
[2020-03-19 13:56] LABS: ABG Base Excess -4.2 MMOL/L (-2.5-2.5); ABG HCO3 20.8 MMOL/L (20-26); ABG Oxygen Saturation 91.4 % (95-100); ABG PCO2 40.5 MM HG (35-48); ABG PH 7.332 (7.35-7.45); ABG TCO2 19.4 MMOL/L (23-27)
[2020-03-19] MEDS: AZITHROMYCIN INJ 500 MG in SODIUM CHLORIDE 0.9% 250 ML IV SCH (21:22)
[2020-03-19] MEDS: MIRTAZAPINE 15 MG TABLET PO SCH (21:23)
[2020-03-19] MEDS: INSULIN GLARGINE 100 UNIT/ML SUBCUT SCH (21:30)
[2020-03-19] MEDS: HEPARIN DRIP 25,000 UNITS/500 ML PREMIX IV SCH (23:02)
[2020-03-19] MEDS: cefTRIAXone 2,000 MG in SYRINGE 1 EACH IV SCH (23:40)
[2020-03-20 04:25] LABS: ABG Base Excess -5.8 MMOL/L (-2.5-2.5); ABG HCO3 19.6 MMOL/L (20-26); ABG Oxygen Saturation 91.7 % (95-100); ABG PCO2 41.7 MM HG (35-48); ABG PH 7.299 (7.35-7.45); ABG TCO2 18.4 MMOL/L (23-27); Allen Test Positive; Pt O2 Delivery Device Ventilator
[2020-03-20 04:38] LABS: Basophils % 0.1 % (0.0-0.8); Hematocrit 37.4 VOL% (42.0-52.0); Hemoglobin 12.3 GM/DL (14.0-18.0); Immature Granulocytes % 0.7 %; Immature Granulocytes Absolute 0.06 #; Lymphocytes # 0.8 10*3/uL (1.4-4.0); Lymphocytes % 9.2 % (21.2-54.2); Mean Corpuscular HGB Conc 32.9 GM/DL (32-36); Mean Corpuscular Volume 90.6 FL (87-102); Mean Platelet Volume 12.7 FL (9.6-12.0); Monocytes % 1.9 % (1.7-12.7); Neutrophils % 88.1 % (38.7-73.9); Platelet Count 121 T/CUMM (130-400); Red Blood Count 4.13 MC/CUMM (3.8-5.5); Red Cell Distribution Width 15.6 % (9.3-17.3); White Blood Count 8.8 T/CUMM (4-12)
[2020-03-20 04:49] LABS: Calcium 8.5 MG/DL (8.5-10.1); Osmolality,Calculated 307.2 MOS/KG (273-304)
[2020-03-20] MEDS: hydrALAZINE 25 MG TABLET PO SCH ×3 (05:11→20:01)
[2020-03-20] MEDS: INSULIN LISPRO 100 UNIT/ML SUBCUT SCH ×4 (05:12→18:10)
[2020-03-20] MEDS: CHOLECALCIFEROL 1,000 UNIT TABLET PO SCH (09:52)
[2020-03-20] MEDS: MULTIVITAMIN (BEROCCA) TABLET PO SCH (09:52)
[2020-03-20] MEDS: ASPIRIN CHEW 81 MG TABLET PO SCH (09:53)
[2020-03-20] MEDS: LOSARTAN 50 MG TABLET PO SCH (09:53)
[2020-03-20] MEDS: METOPROLOL TARTRATE 25 MG TABLET PO SCH ×2 (09:54→20:01)
[2020-03-20] MEDS: TAMSULOSIN 0.4 MG CAPSULE PO SCH (09:54)
[2020-03-20] MEDS: ZINC SULFATE 220 MG CAPSULE PO SCH (09:55)
[2020-03-20] MEDS: DOCUSATE SODIUM 100 MG CAPSULE PO SCH ×2 (09:55→20:00)
[2020-03-20] MEDS: ASCORBIC ACID 500 MG TABLET PO SCH ×2 (09:55→20:00)
[2020-03-20] MEDS: SEVELAMER CARBONATE 800 MG TABLET PO SCH ×3 (09:55→18:06)
[2020-03-20] MEDS: MEMANTINE 10 MG TABLET PO SCH ×2 (09:55→20:01)
[2020-03-20] MEDS: DEXAMETHASONE 10 MG/1 ML VIAL IV SCH (09:56)
[2020-03-20] MEDS: ISOSORBIDE MONONITRATE 60 MG TABLET PO SCH (09:56)
[2020-03-20 10:26] LABS: Ferritin 15598.7 ng/ml (26-388)
[2020-03-20] MEDS: PANTOPRAZOLE 40 MG VIAL IV SCH ×2 (10:30→20:02)
[2020-03-20] MEDS: GABAPENTIN 50 MG/ML 30 ML/BOTTLE PO SCH ×3 (10:47→20:48)
[2020-03-20] MEDS ORDERED: NOREPINEPHRINE 8 MG in SODIUM CHLORIDE 0.9% 242 ML IV PRN (15:46)
[2020-03-20] MEDS: FLUDROCORTISONE 0.1 MG TABLET PO SCH ×2 (16:54→20:01)
[2020-03-20 16:55] LABS: Hepatitis B Surface Ag Quant < 0.10 Index; Hepatitis B Surface Ag Result Negative (Negative); Hepatitis C Virus Ab Quant 0.09 Index; Hepatitis C Virus Ab Result Negative (Negative)
[2020-03-20] MEDS: AZITHROMYCIN INJ 500 MG in SODIUM CHLORIDE 0.9% 250 ML IV SCH (19:59)
[2020-03-20] MEDS: MIRTAZAPINE 15 MG TABLET PO SCH (20:00)
[2020-03-20] MEDS: INSULIN GLARGINE 100 UNIT/ML SUBCUT SCH (20:02)
[2020-03-20] MEDS: MORPHINE 4 MG/1 ML VIAL IV PRN (20:02)
[2020-03-21] MEDS: cefTRIAXone 2,000 MG in SYRINGE 1 EACH IV SCH (02:00)
[2020-03-21] MEDS: INSULIN LISPRO 100 UNIT/ML SUBCUT SCH ×4 (02:00→18:34)
[2020-03-21] MEDS ORDERED: ROCURONIUM 100 MG/10 ML VIAL IV ONE ×2 (04:04→04:09)
[2020-03-21] MEDS ORDERED: propofoL 200 MG/20 ML VIAL IV ONE (04:07)
[2020-03-21] MEDS: HEPARIN DRIP 25,000 UNITS/500 ML PREMIX IV SCH ×2 (04:31→23:00)
[2020-03-21 04:53] LABS: Basophils % 0.1 % (0.0-0.8); Hematocrit 33.7 VOL% (42.0-52.0); Hemoglobin 11.2 GM/DL (14.0-18.0); Immature Granulocytes % 0.8 %; Immature Granulocytes Absolute 0.06 #; Lymphocytes # 0.7 10*3/uL (1.4-4.0); Lymphocytes % 8.7 % (21.2-54.2); Mean Corpuscular HGB Conc 33.2 GM/DL (32-36); Mean Corpuscular Volume 91.1 FL (87-102); Mean Platelet Volume 12.1 FL (9.6-12.0); Monocytes % 1.6 % (1.7-12.7); Neutrophils % 88.8 % (38.7-73.9); Platelet Count 111 T/CUMM (130-400); Red Cell Distribution Width 15.8 % (9.3-17.3); White Blood Count 7.6 T/CUMM (4-12)
[2020-03-21 05:11] LABS: Calcium 7.6 MG/DL (8.5-10.1); Osmolality,Calculated 292.2 MOS/KG (273-304)
[2020-03-21 05:28] LABS: Ferritin 13602.8 ng/ml (26-388)
[2020-03-21 05:34] LABS: Band Neutrophils 2 % (0-10); Lymphocytes 6 % (20-55); Segmented Neutrophils 89 % (50-85); Total Cells Counted 100
[2020-03-21 05:35] LABS: Burr Cells Slight; Ovalocytes Slight; Platelet Estimate Decreased
[2020-03-21] MEDS: hydrALAZINE 25 MG TABLET PO SCH ×3 (06:05→20:57)
[2020-03-21 07:08] LABS: ABG Base Excess -4.6 MMOL/L (-2.5-2.5); ABG HCO3 20.6 MMOL/L (20-26); ABG PCO2 46.9 MM HG (35-48); ABG PH 7.284 (7.35-7.45)
[2020-03-21] MEDS: DEXAMETHASONE 10 MG/1 ML VIAL IV SCH (08:04)
[2020-03-21] MEDS: ASPIRIN CHEW 81 MG TABLET PO SCH (08:05)
[2020-03-21] MEDS: DOCUSATE SODIUM 100 MG CAPSULE PO SCH ×2 (08:05→20:57)
[2020-03-21] MEDS: SEVELAMER CARBONATE 800 MG TABLET PO SCH ×3 (08:05→18:32)
[2020-03-21] MEDS: ISOSORBIDE MONONITRATE 60 MG TABLET PO SCH (08:06)
[2020-03-21] MEDS: MULTIVITAMIN (BEROCCA) TABLET PO SCH (08:06)
[2020-03-21] MEDS: CHOLECALCIFEROL 1,000 UNIT TABLET PO SCH (08:06)
[2020-03-21] MEDS: ASCORBIC ACID 500 MG TABLET PO SCH ×2 (08:06→20:57)
[2020-03-21] MEDS: TAMSULOSIN 0.4 MG CAPSULE PO SCH (08:06)
[2020-03-21] MEDS: MEMANTINE 10 MG TABLET PO SCH ×2 (08:06→20:57)
[2020-03-21] MEDS: FLUDROCORTISONE 0.1 MG TABLET PO SCH ×2 (08:06→20:57)
[2020-03-21] MEDS: GABAPENTIN 50 MG/ML 30 ML/BOTTLE PO SCH ×3 (09:00→20:58)
[2020-03-21] MEDS: PANTOPRAZOLE 40 MG VIAL IV SCH ×2 (10:28→20:57)
[2020-03-21] MEDS: METOPROLOL TARTRATE 25 MG TABLET PO SCH ×3 (11:05→22:30)
[2020-03-21] MEDS: LOSARTAN 50 MG TABLET PO SCH (12:00)
[2020-03-21] MEDS: MIRTAZAPINE 15 MG TABLET PO SCH (20:57)
[2020-03-21] MEDS: AZITHROMYCIN INJ 500 MG in SODIUM CHLORIDE 0.9% 250 ML IV SCH (20:57)
[2020-03-21] MEDS: INSULIN GLARGINE 100 UNIT/ML SUBCUT SCH (20:58)
[2020-03-22] MEDS: INSULIN LISPRO 100 UNIT/ML SUBCUT SCH ×4 (00:16→18:11)
[2020-03-22] MEDS ORDERED: cefTRIAXone 1,000 MG in SYRINGE 1 EACH IV SCH (02:00)
[2020-03-22] MEDS: hydrALAZINE 20 MG/1 ML VIAL IV PRN (02:05)
[2020-03-22 03:37] LABS: ABG Base Excess -3.4 MMOL/L (-2.5-2.5); ABG HCO3 21.5 MMOL/L (20-26); ABG Oxygen Saturation 97.6 % (95-100); ABG PCO2 38.2 MM HG (35-48); ABG TCO2 19.3 MMOL/L (23-27); Allen Test Positive; Pt O2 Delivery Device Ventilator
[2020-03-22] MEDS: hydrALAZINE 25 MG TABLET PO SCH ×2 (05:20→12:05)
[2020-03-22] MEDS: MORPHINE 4 MG/1 ML VIAL IV PRN (05:21)
[2020-03-22 05:24] LABS: Basophils % 0.1 % (0.0-0.8); Eosinophils % 0.1 % (0.00-10.9); Hematocrit 33.8 VOL% (42.0-52.0); Hemoglobin 11.4 GM/DL (14.0-18.0); Immature Granulocytes % 0.7 %; Immature Granulocytes Absolute 0.05 #; Lymphocytes # 0.7 10*3/uL (1.4-4.0); Lymphocytes % 10.1 % (21.2-54.2); Mean Corpuscular HGB Conc 33.7 GM/DL (32-36); Mean Corpuscular Volume 90.6 FL (87-102); Mean Platelet Volume 11.7 FL (9.6-12.0); Monocytes % 1.4 % (1.7-12.7); Neutrophils % 87.6 % (38.7-73.9); Platelet Count 136 T/CUMM (130-400); Red Blood Count 3.73 MC/CUMM (3.8-5.5); Red Cell Distribution Width 15.9 % (9.3-17.3); White Blood Count 7.3 T/CUMM (4-12)
[2020-03-22 05:40] LABS: Calcium 7.7 MG/DL (8.5-10.1); Osmolality,Calculated 299.5 MOS/KG (273-304)
[2020-03-22 05:44] LABS: Band Neutrophils 1 % (0-10); Hypochromasia 1+; Lymphocytes 9 % (20-55); Ovalocytes Slight; Platelet Estimate Normal; Segmented Neutrophils 87 % (50-85); Total Cells Counted 100
[2020-03-22 05:45] LABS: Burr Cells Slight
[2020-03-22 05:59] LABS: Ferritin 11109.9 ng/ml (26-388)
[2020-03-22] MEDS: DEXAMETHASONE 10 MG/1 ML VIAL IV SCH (08:02)
[2020-03-22] MEDS: PANTOPRAZOLE 40 MG VIAL IV SCH ×2 (08:03→20:54)
[2020-03-22] MEDS: CHOLECALCIFEROL 1,000 UNIT TABLET PO SCH (08:03)
[2020-03-22] MEDS: MULTIVITAMIN (BEROCCA) TABLET PO SCH (08:03)
[2020-03-22] MEDS: SEVELAMER CARBONATE 800 MG TABLET PO SCH ×3 (08:03→18:11)
[2020-03-22] MEDS: TAMSULOSIN 0.4 MG CAPSULE PO SCH (08:03)
[2020-03-22] MEDS: ZINC SULFATE 220 MG CAPSULE PO SCH (08:03)
[2020-03-22] MEDS: ASPIRIN CHEW 81 MG TABLET PO SCH (08:03)
[2020-03-22] MEDS: ISOSORBIDE MONONITRATE 60 MG TABLET PO SCH (08:04)
[2020-03-22] MEDS: ASCORBIC ACID 500 MG TABLET PO SCH ×2 (08:04→20:53)
[2020-03-22] MEDS: MEMANTINE 10 MG TABLET PO SCH ×2 (08:04→20:53)
[2020-03-22] MEDS: DOCUSATE SODIUM 100 MG CAPSULE PO SCH ×2 (08:04→20:54)
[2020-03-22] MEDS: GABAPENTIN 50 MG/ML 30 ML/BOTTLE PO SCH ×3 (08:05→21:54)
[2020-03-22] MEDS: FLUDROCORTISONE 0.1 MG TABLET PO SCH ×2 (08:10→20:53)
[2020-03-22] MEDS: LOSARTAN 50 MG TABLET PO SCH (11:54)
[2020-03-22] MEDS: METOPROLOL TARTRATE 25 MG TABLET PO SCH ×2 (11:54→20:53)
[2020-03-22] MEDS: AZITHROMYCIN INJ 500 MG in SODIUM CHLORIDE 0.9% 250 ML IV SCH (20:45)
[2020-03-22] MEDS: INSULIN GLARGINE 100 UNIT/ML SUBCUT SCH (20:54)
[2020-03-22] MEDS: MIRTAZAPINE 15 MG TABLET PO SCH (20:54)
[2020-03-23] MEDS: INSULIN LISPRO 100 UNIT/ML SUBCUT SCH ×4 (01:14→18:18)
[2020-03-23 04:38] LABS: Allen Test Positive; Pt O2 Delivery Device Ventilator
[2020-03-23 04:49] LABS: Eosinophils % 0.2 % (0.00-10.9); Hematocrit 30.3 VOL% (42.0-52.0); Hemoglobin 9.9 GM/DL (14.0-18.0); Immature Granulocytes % 0.7 %; Immature Granulocytes Absolute 0.04 #; Lymphocytes # 0.7 10*3/uL (1.4-4.0); Lymphocytes % 11.9 % (21.2-54.2); Mean Corpuscular HGB Conc 32.7 GM/DL (32-36); Monocytes % 1.6 % (1.7-12.7); Neutrophils % 85.6 % (38.7-73.9); Platelet Count 107 T/CUMM (130-400); Red Blood Count 3.33 MC/CUMM (3.8-5.5); Red Cell Distribution Width 15.8 % (9.3-17.3); White Blood Count 5.7 T/CUMM (4-12)
[2020-03-23 04:53] LABS: ABG Base Excess -1.1 MMOL/L (-2.5-2.5); ABG HCO3 23.5 MMOL/L (20-26); ABG PCO2 41.8 MM HG (35-48); ABG TCO2 21.7 MMOL/L (23-27)
[2020-03-23 05:09] LABS: Calcium 7.5 MG/DL (8.5-10.1); Osmolality,Calculated 295.8 MOS/KG (273-304)
[2020-03-23 05:22] LABS: INR 1.1; PT Patient Result 11.9 SECS (9.8-11.9)
[2020-03-23 05:24] LABS: Hypochromasia 1+; Lymphocytes 7 % (20-55); Segmented Neutrophils 90 % (50-85); Total Cells Counted 100
[2020-03-23 05:25] LABS: Acanthocytes Few; Microcytosis Slight
[2020-03-23 05:26] LABS: Burr Cells Slight; Platelet Estimate Decreased
[2020-03-23] MEDS: ASCORBIC ACID 500 MG TABLET PO SCH ×2 (09:32→20:32)
[2020-03-23] MEDS: METOPROLOL TARTRATE 25 MG TABLET PO SCH ×2 (09:32→21:32)
[2020-03-23] MEDS: DOCUSATE SODIUM 100 MG CAPSULE PO SCH ×2 (09:33→20:33)
[2020-03-23] MEDS: CHOLECALCIFEROL 1,000 UNIT TABLET PO SCH (09:33)
[2020-03-23] MEDS: MEMANTINE 10 MG TABLET PO SCH ×2 (09:33→20:33)
[2020-03-23] MEDS: FLUDROCORTISONE 0.1 MG TABLET PO SCH ×2 (09:33→20:33)
[2020-03-23] MEDS: SEVELAMER CARBONATE 800 MG TABLET PO SCH ×3 (09:33→18:18)
[2020-03-23] MEDS: TAMSULOSIN 0.4 MG CAPSULE PO SCH (09:33)
[2020-03-23] MEDS: ASPIRIN CHEW 81 MG TABLET PO SCH (09:33)
[2020-03-23] MEDS: ISOSORBIDE MONONITRATE 60 MG TABLET PO SCH (09:33)
[2020-03-23] MEDS: HEPARIN DRIP 25,000 UNITS/500 ML PREMIX IV SCH (09:34)
[2020-03-23] MEDS: DEXAMETHASONE 10 MG/1 ML VIAL IV SCH (09:36)
[2020-03-23] MEDS: GABAPENTIN 50 MG/ML 30 ML/BOTTLE PO SCH ×3 (09:37→21:32)
[2020-03-23] MEDS: PANTOPRAZOLE 40 MG VIAL IV SCH ×2 (09:38→20:34)
[2020-03-23] MEDS: MULTIVITAMIN (BEROCCA) TABLET PO SCH (09:38)
[2020-03-23 13:07] LABS: INR 1.2; PT Patient Result 13.1 SECS (9.8-11.9)
[2020-03-23 13:22] LABS: Partial Thromboplastin Time 121.6 SECS (23.9-33.8)
[2020-03-23] MEDS: MIRTAZAPINE 15 MG TABLET PO SCH (20:33)
[2020-03-23] MEDS: AZITHROMYCIN INJ 500 MG in SODIUM CHLORIDE 0.9% 250 ML IV SCH (21:31)
[2020-03-23] MEDS: INSULIN GLARGINE 100 UNIT/ML SUBCUT SCH (21:32)
[2020-03-24] MEDS: HEPARIN DRIP 25,000 UNITS/500 ML PREMIX IV SCH ×2 (01:14→21:58)
[2020-03-24] MEDS: INSULIN LISPRO 100 UNIT/ML SUBCUT SCH ×4 (01:14→18:53)
[2020-03-24 04:17] LABS: Eosinophils % 0.5 % (0.00-10.9); Hematocrit 30.6 VOL% (42.0-52.0); Immature Granulocytes % 0.5 %; Immature Granulocytes Absolute 0.03 #; Lymphocytes # 0.8 10*3/uL (1.4-4.0); Lymphocytes % 11.7 % (21.2-54.2); Mean Corpuscular HGB Conc 32.7 GM/DL (32-36); Mean Corpuscular Volume 91.6 FL (87-102); Mean Platelet Volume 11.4 FL (9.6-12.0); Monocytes % 1.9 % (1.7-12.7); Neutrophils % 85.4 % (38.7-73.9); Platelet Count 143 T/CUMM (130-400); Red Blood Count 3.34 MC/CUMM (3.8-5.5); Red Cell Distribution Width 15.9 % (9.3-17.3); White Blood Count 6.5 T/CUMM (4-12)
[2020-03-24 04:34] LABS: Calcium 7.6 MG/DL (8.5-10.1); Osmolality,Calculated 293.2 MOS/KG (273-304)
[2020-03-24 04:46] LABS: ABG Base Excess -2.7 MMOL/L (-2.5-2.5); ABG HCO3 22.3 MMOL/L (20-26); ABG Oxygen Saturation 98.7 % (95-100); ABG PCO2 39.6 MM HG (35-48); ABG PH 7.369 (7.35-7.45); ABG PO2 153.2 MM HG (80-95); ABG TCO2 23.5 MMOL/L (23-27); Allen Test Positive; Pt O2 Delivery Device Ventilator
[2020-03-24] MEDS ORDERED: ALPRAZolam 0.25 MG TABLET PO PRN (07:35)
[2020-03-24] MEDS ORDERED: DEXMEDETOMIDINE 400 MCG in SODIUM CHLORIDE 0.9% 96 ML IV PRN (07:37)
[2020-03-24] MEDS: ASPIRIN CHEW 81 MG TABLET PO SCH (09:00)
[2020-03-24] MEDS: MULTIVITAMIN (BEROCCA) TABLET PO SCH (09:00)
[2020-03-24] MEDS: DOCUSATE SODIUM 100 MG CAPSULE PO SCH ×2 (09:00→22:00)
[2020-03-24] MEDS: METOPROLOL TARTRATE 25 MG TABLET PO SCH ×2 (09:01→22:00)
[2020-03-24] MEDS: SEVELAMER CARBONATE 800 MG TABLET PO SCH ×2 (09:01→18:28)
[2020-03-24] MEDS: ISOSORBIDE MONONITRATE 60 MG TABLET PO SCH (09:01)
[2020-03-24] MEDS: DEXAMETHASONE 10 MG/1 ML VIAL IV SCH (09:01)
[2020-03-24] MEDS: MEMANTINE 10 MG TABLET PO SCH ×2 (09:01→22:01)
[2020-03-24] MEDS: CHOLECALCIFEROL 1,000 UNIT TABLET PO SCH (09:01)
[2020-03-24] MEDS: ZINC SULFATE 220 MG CAPSULE PO SCH (09:01)
[2020-03-24] MEDS: FLUDROCORTISONE 0.1 MG TABLET PO SCH ×2 (09:01→22:00)
[2020-03-24] MEDS: ASCORBIC ACID 500 MG TABLET PO SCH ×2 (09:01→22:01)
[2020-03-24] MEDS: TAMSULOSIN 0.4 MG CAPSULE PO SCH (09:01)
[2020-03-24] MEDS: PANTOPRAZOLE 40 MG VIAL IV SCH ×2 (09:02→20:35)
[2020-03-24] MEDS: GABAPENTIN 50 MG/ML 30 ML/BOTTLE PO SCH ×3 (09:03→22:01)
[2020-03-24 09:13] LABS: INR 1.1; PT Patient Result 11.4 SECS (9.8-11.9); Partial Thromboplastin Time 37.9 SECS (23.9-33.8)
[2020-03-24] MEDS ORDERED: HEPARIN 5,000 UNIT/1 ML VIAL IV ONE (10:00)
[2020-03-24 15:08] LABS: INR 1.1; PT Patient Result 11.4 SECS (9.8-11.9)
[2020-03-24 15:10] LABS: Partial Thromboplastin Time 67.8 SECS (23.9-33.8)
[2020-03-24] MEDS: hydrALAZINE 20 MG/1 ML VIAL IV PRN (19:45)
[2020-03-24] MEDS: INSULIN GLARGINE 100 UNIT/ML SUBCUT SCH (20:07)
[2020-03-24] MEDS: MORPHINE 4 MG/1 ML VIAL IV PRN (20:09)
[2020-03-24] MEDS: MIRTAZAPINE 15 MG TABLET PO SCH (22:01)
[2020-03-25] MEDS: INSULIN LISPRO 100 UNIT/ML SUBCUT SCH ×4 (00:05→18:23)
[2020-03-25 04:04] LABS: ABG Base Excess -0.5 MMOL/L (-2.5-2.5); ABG HCO3 23.5 MMOL/L (20-26); ABG Oxygen Saturation 96.7 % (95-100); ABG PCO2 36.3 MM HG (35-48); ABG PH 7.429 (7.35-7.45); ABG PO2 89.1 MM HG (80-95); ABG TCO2 24.6 MMOL/L (23-27); Allen Test Positive
[2020-03-25] MEDS: DEXTROSE 50% 25 GM/50 ML VIAL IV PRN ×2 (04:27→11:28)
[2020-03-25 04:57] LABS: Basophils % 0.1 % (0.0-0.8); Eosinophils # 0.1 10*3/uL (0.0-0.87); Eosinophils % 1.5 % (0.00-10.9); Hematocrit 31.8 VOL% (42.0-52.0); Hemoglobin 10.5 GM/DL (14.0-18.0); Immature Granulocytes % 0.9 %; Immature Granulocytes Absolute 0.07 #; Lymphocytes # 0.8 10*3/uL (1.4-4.0); Lymphocytes % 9.8 % (21.2-54.2); Mean Corpuscular Volume 90.1 FL (87-102); Mean Platelet Volume 11.8 FL (9.6-12.0); Monocytes % 3.2 % (1.7-12.7); Neutrophils % 84.5 % (38.7-73.9); Platelet Count 180 T/CUMM (130-400); Red Blood Count 3.53 MC/CUMM (3.8-5.5); Red Cell Distribution Width 16.1 % (9.3-17.3); White Blood Count 8.1 T/CUMM (4-12)
[2020-03-25 05:12] LABS: Osmolality,Calculated 286.2 MOS/KG (273-304)
[2020-03-25 05:17] LABS: INR 1.1; PT Patient Result 11.4 SECS (9.8-11.9); Partial Thromboplastin Time 30.8 SECS (23.9-33.8)
[2020-03-25 05:23] LABS: Band Neutrophils 1 % (0-10); Hypochromasia Slight; Lymphocytes 11 % (20-55); Platelet Estimate Normal; Segmented Neutrophils 84 % (50-85); Total Cells Counted 100
[2020-03-25] MEDS: ASPIRIN CHEW 81 MG TABLET PO SCH ×2 (08:07→08:08)
[2020-03-25] MEDS: MULTIVITAMIN (BEROCCA) TABLET PO SCH ×2 (08:07→08:08)
[2020-03-25] MEDS: TAMSULOSIN 0.4 MG CAPSULE PO SCH ×2 (08:07→08:09)
[2020-03-25] MEDS: SEVELAMER CARBONATE 800 MG TABLET PO SCH ×2 (08:07→11:25)
[2020-03-25] MEDS: DOCUSATE SODIUM 100 MG CAPSULE PO SCH ×2 (08:07→08:08)
[2020-03-25] MEDS: FLUDROCORTISONE 0.1 MG TABLET PO SCH ×2 (08:07→08:09)
[2020-03-25] MEDS: ASCORBIC ACID 500 MG TABLET PO SCH ×2 (08:08→08:10)
[2020-03-25] MEDS: ISOSORBIDE MONONITRATE 60 MG TABLET PO SCH ×2 (08:08→08:09)
[2020-03-25] MEDS: MEMANTINE 10 MG TABLET PO SCH ×2 (08:08→08:10)
[2020-03-25] MEDS: GABAPENTIN 50 MG/ML 30 ML/BOTTLE PO SCH ×2 (08:08→08:10)
[2020-03-25] MEDS: METOPROLOL TARTRATE 25 MG TABLET PO SCH ×2 (08:08→08:09)
[2020-03-25] MEDS: CHOLECALCIFEROL 1,000 UNIT TABLET PO SCH ×2 (08:08→08:10)
[2020-03-25] MEDS: PANTOPRAZOLE 40 MG VIAL IV SCH ×2 (08:53→22:23)
[2020-03-25] MEDS: DEXAMETHASONE 10 MG/1 ML VIAL IV SCH (08:54)
[2020-03-25] MEDS: ENOXAPARIN 80 MG/0.8 ML SYRINGE SUBCUT SCH (08:54)
[2020-03-25] MEDS: RIVASTIGMINE 9.5 MG/24 HR PATCH TRANSDERM SCH (14:52)
[2020-03-25] MEDS ORDERED: DEXTROSE 10% 1,000 ML IV PRN (17:00)
[2020-03-25] MEDS: TRACE ELEMENTS (5) 1 ML in AMINO ACIDS/DEXT/LYTES 4.25-5% 2,000 ML IV SCH (17:28)
[2020-03-25] MEDS: METOPROLOL TARTRATE 5 MG/5 ML VIAL IV SCH (22:23)
[2020-03-26] MEDS: METOPROLOL TARTRATE 5 MG/5 ML VIAL IV SCH ×4 (03:49→21:43)
[2020-03-26 06:20] LABS: Calcium 8.1 MG/DL (8.5-10.1); Osmolality,Calculated 293.2 MOS/KG (273-304)
[2020-03-26] MEDS: INSULIN LISPRO 100 UNIT/ML SUBCUT SCH ×5 (06:20→23:45)
[2020-03-26] MEDS: PANTOPRAZOLE 40 MG VIAL IV SCH ×2 (08:07→21:43)
[2020-03-26] MEDS: ENOXAPARIN 80 MG/0.8 ML SYRINGE SUBCUT SCH (08:07)
[2020-03-26] MEDS: RIVASTIGMINE 9.5 MG/24 HR PATCH TRANSDERM SCH (15:13)
[2020-03-27] MEDS: TRACE ELEMENTS (5) 1 ML in AMINO ACIDS/DEXT/LYTES 4.25-5% 2,000 ML IV SCH (03:13)
[2020-03-27] MEDS: METOPROLOL TARTRATE 5 MG/5 ML VIAL IV SCH ×4 (03:34→21:10)
[2020-03-27] MEDS: INSULIN LISPRO 100 UNIT/ML SUBCUT SCH ×3 (06:49→19:08)
[2020-03-27 07:03] LABS: Calcium 8.2 MG/DL (8.5-10.1); Osmolality,Calculated 293.8 MOS/KG (273-304)
[2020-03-27] MEDS: ENOXAPARIN 80 MG/0.8 ML SYRINGE SUBCUT SCH (08:50)
[2020-03-27] MEDS: RIVASTIGMINE 9.5 MG/24 HR PATCH TRANSDERM SCH (08:50)
[2020-03-27] MEDS: PANTOPRAZOLE 40 MG VIAL IV SCH ×2 (08:50→21:12)
[2020-03-27] MEDS ORDERED: [UNRECOGNIZED DRUG - OTHER] IV SCH (17:00)
[2020-03-27] MEDS ORDERED: MULTIVITAMIN PEDIATRIC IV SCH (17:00)
[2020-03-27] MEDS ORDERED: TRACE ELEMENTS IV SCH (17:00)
[2020-03-28] MEDS: INSULIN LISPRO 100 UNIT/ML SUBCUT SCH ×4 (00:40→19:10)
[2020-03-28] MEDS: METOPROLOL TARTRATE 5 MG/5 ML VIAL IV SCH ×2 (03:04→08:50)
[2020-03-28 07:26] LABS: Calcium 8.1 MG/DL (8.5-10.1); Osmolality,Calculated 295.2 MOS/KG (273-304)
[2020-03-28] MEDS ORDERED: ceFAZolin 1,000 MG in SYRINGE 1 EACH IV ONE (07:51)
[2020-03-28] MEDS ORDERED: ONDANSETRON 4 MG/2 ML VIAL IV PRN (07:51)
[2020-03-28] MEDS ORDERED: SODIUM CHLORIDE 0.9% 500 ML IV SCH (08:30)
[2020-03-28] MEDS: RIVASTIGMINE 9.5 MG/24 HR PATCH TRANSDERM SCH (08:50)
[2020-03-28] MEDS: PANTOPRAZOLE 40 MG VIAL IV SCH (08:51)
[2020-03-28] MEDS ORDERED: ENOXAPARIN 80 MG/0.8 ML SYRINGE SUBCUT SCH (09:00)
[2020-03-28] MEDS ORDERED: HEPARIN 5,000 UNIT/1 ML VIAL SUBCUT SCH (09:00)
[2020-03-28 10:00] LABS: Basophils % 0.7 % (0.0-0.8); Eosinophils % 0.5 % (0.00-10.9); Hematocrit 26.1 VOL% (42.0-52.0); Hemoglobin 8.6 GM/DL (14.0-18.0); Immature Granulocytes % 0.5 %; Immature Granulocytes Absolute 0.02 #; Lymphocytes # 0.5 10*3/uL (1.4-4.0); Lymphocytes % 11.7 % (21.2-54.2); Mean Corpuscular Volume 89.4 FL (87-102); Mean Platelet Volume 12.1 FL (9.6-12.0); Monocytes % 3.4 % (1.7-12.7); Neutrophils % 83.2 % (38.7-73.9); Platelet Count 140 T/CUMM (130-400); Red Blood Count 2.92 MC/CUMM (3.8-5.5); Red Cell Distribution Width 16.6 % (9.3-17.3); White Blood Count 4.4 T/CUMM (4-12)
[2020-03-28 10:21] LABS: Band Neutrophils 6 % (0-10); Eosinophils 1 % (0-10); Lymphocytes 5 % (20-55); Platelet Estimate Adequate; Segmented Neutrophils 83 % (50-85); Total Cells Counted 100
[2020-03-28 10:22] LABS: Burr Cells Slight; Hypochromasia 1+; Microcytosis 1+; Ovalocytes Slight
[2020-03-28] MEDS ORDERED: AMPICILLIN/SULBACTAM 3,000 MG in SODIUM CHLORIDE 0.9% 100 ML IV SCH (11:00)
[2020-03-28 11:07] LABS: INR 1.4; PT Patient Result 14.6 SECS (9.8-11.9)
[2020-03-28] MEDS ORDERED: ETOMIDATE 20 MG/10 ML VIAL IV ONE (14:00)
[2020-03-28] MEDS ORDERED: LIDOCAINE 2% 5 ML VIAL ONE (14:00)
[2020-03-28] MEDS ORDERED: SODIUM CHLORIDE 0.9% 250 ML IV ONE (16:21)
[2020-03-28] MEDS: TRACE ELEMENTS (5) 1 ML in AMINO ACIDS/DEXT/LYTES 4.25-5% 2,000 ML IV SCH (17:35)
[2020-03-28] MEDS: GABAPENTIN 50 MG/ML 30 ML/BOTTLE PO SCH (17:35)
[2020-03-28] MEDS: SEVELAMER CARBONATE 800 MG TABLET PO SCH (17:35)
[2020-03-28 20:11] VITALS: BP 100/51
[2020-03-28] MEDS ORDERED: ATROPINE 1 MG/10 ML SYRINGE ONE (21:05)
[2020-03-28] MEDS ORDERED: MAGNESIUM SULFATE 1 GM/2 ML VIAL ONE (21:05)
[2020-03-28] MEDS ORDERED: CALCIUM CHLORIDE 1,000 MG/10 ML SYRINGE IV ONE (21:05)
[2020-03-28] MEDS ORDERED: EPINEPHrine 1 MG/10 ML SYRINGE ONE (21:05)
[2020-03-28] MEDS ORDERED: SODIUM BICARBONATE 50 MEQ/50 ML SYRINGE IV ONE (21:05)
[2020-03-28 21:45] LABS: ABG Base Excess -15.3 MMOL/L (-2.5-2.5); ABG HCO3 12.6 MMOL/L (20-26); ABG Oxygen Saturation 96.1 % (95-100); ABG TCO2 16.3 MMOL/L (23-27)
[2020-03-28 21:48] LABS: ABG PH 6.993 (7.35-7.45)
[2020-03-29] MEDS: INSULIN LISPRO 100 UNIT/ML SUBCUT SCH (01:58)
[2020-03-29] MEDS: hydrALAZINE 25 MG TABLET PO SCH (01:58)
[2020-03-29] MEDS ORDERED: PANTOPRAZOLE 40 MG VIAL IV SCH (09:00)
== END 2020-03-29 00:31 | disposition expired | DRG 870 ==
LOC: N.ED 16:48 → SUATTDRO 19:52 → N.EDINP 19:52 → N.CC 20:15 → N.2E 03-25 17:13 → N.ICU 03-28 21:55
PROVIDERS: ADMIT Internal Medicine; ATTEND Internal Medicine
PROC: EGDWPEG (ICD-10-PCS; 2020-03-28 08:00)